=== PATIENT | female | born 1940 | race Asian ===

== ENCOUNTER 2016-04-20 21:45 | Inpatient (IN) | payer MEDICARE, MEDICAID ==
[~2016-04-20] VITALS: Ht 157.5 cm; Wt 49.9 kg
[~2016-04-20 21:45] MED LIST: AMLODIPINE BESYL5 MG ORAL; ASPIR 8181 MG ORAL; ATORVASTATIN CA20 MG ORAL; GABAPENTIN800 MG ORAL; LOSARTAN POTASS50 MG ORAL; METFORMIN HCL1000 M1 ORAL; NOVOLOG100 UNIT/3 SUBQ
[2016-04-20] MEDS ORDERED: Piperacillin/Tazobactam 3.375 GM in NS 110 ML IVPB ONE (22:30)
[2016-04-20] MEDS ORDERED: Vancomycin 1 GM in NS 275 ML IV ONE (22:30)
[2016-04-20 23:25] LABS: EOSINOPHILS % (AUTO) 2.5 % (0.0-3.0); KETONES,URINE NEGATIVE (NEGATIVE); LEUKOCYTE ESTERASE ,URINE 2+ (NEGATIVE); LYMPHOCYTES % (AUTO) 40.3 % (20.0-45.0); MEAN CORPUSCULAR HEMOGLOBIN 31.2 PG (27.0-31.0); MEAN CORPUSCULAR HGB CONC 33.7 G/DL (32.0-36.0); MEAN CORPUSCULAR VOLUME 93 FL (80-99); MEAN PLATELET VOLUME 5.3 FL (6.5-10.1); MONOCYTES % (AUTO) 7.5 % (1.0-10.0); NEUTROPHILS % (AUTO) 48.6 % (45.0-75.0); NITRITE,URINE NEGATIVE (NEGATIVE); PH,URINE 6 (4.5-8.0); PLATELET COUNT 342 K/UL (150-450); PROTEIN,URINE NEGATIVE (NEGATIVE); RED BLOOD COUNT 3.72 M/UL (4.20-5.40); RED CELL DISTRIBUTION WIDTH 11.5 % (11.6-14.8); UROBILINOGEN,URINE NORMAL MG/DL (0.0-1.0); WHITE BLOOD COUNT 6.7 K/UL (4.8-10.8)
[2016-04-20 23:38] LABS: ALANINE AMINOTRANSFERASE 28 U/L (3-33); ANION GAP 14 (5-15); ASPARTATE AMINO TRANSFERASE 20 U/L (5-40); CALCIUM 9.3 mg/dL (8.6-10.2); CARBON DIOXIDE 26 mEQ/L (20-30); CHLORIDE 99 mEQ/L (98-107); CREATININE 0.9 mg/dL (0.5-0.9); HEMOLYSIS 7; POTASSIUM 4.3 mEQ/L (3.4-4.9); SODIUM 139 mEQ/L (135-145); TOTAL PROTEIN 7.5 g/dL (6.6-8.7)
[2016-04-20 23:41] LABS: TROPONIN I < 0.30 ng/mL (<=0.30)
[2016-04-20 23:52] LABS: APPEARANCE,URINE SLIGHTLY CLOUDY
[2016-04-20] MEDS ORDERED: Zosyn 3.375gm inj ONE (23:58)
[2016-04-20] MEDS ORDERED: Tubing IV Cassette IV ONE (23:58)
[2016-04-20] MEDS ORDERED: NS 110 ML ONE (23:58)
[2016-04-20 23:59] LABS: RBC,URINE 60-80 /HPF (0 - 2); WBC,URINE 40-60 /HPF (0 - 2)
[2016-04-21] VITALS (7 sets, daily range): BP systolic 126–177; BP diastolic 61–103
[2016-04-21] LABS: BACTERIA,URINE MANY /HPF; SQUAMOUS EPITHELIAL CELL,UR FEW /LPF (NONE/OCC)
[2016-04-21] MEDS ORDERED: Mylanta II UD 30ml ORAL PRN (00:30)
[2016-04-21] MEDS ORDERED: LORazepam Inj 2mg/ml 1ml IV PRN (00:30)
[2016-04-21] MEDS ORDERED: Miralax 17gm pkt ORAL PRN (00:30)
[2016-04-21] MEDS ORDERED: Zolpidem 5mg tab ORAL PRN (00:30)
[2016-04-21] MEDS ORDERED: NS 275 ML ONE (01:01)
[2016-04-21] MEDS ORDERED: Vancomycin 1gm inj IVPB ONE (01:01)
[2016-04-21] MEDS: Morphine Sulfate 2mg/ml Inj IVP PRN ×3 (03:46→16:31)
[2016-04-21] MEDS ORDERED: Cefepime 1gm vial ONE (04:59)
[2016-04-21] MEDS: Cefepime HCl 1 GM in D5W 55 ML IV SCH ×3 (05:42→22:59)
--- NOTE | 2016-04-21 06:10 | Emergency Room Report ---
History of Present Illness General Chief Complaint: Skin Rash/Abscess Source: Patient, Family Member Present Illness HPI Patient is a 75-year-old female who presented after increased right buttock pain and swelling. Patient prior history of diabetes. Patient had been having gradually progressively enlarging buttock ulcer which had began after a fall in the bathtub. Patients caregiver stated that she had been having increased pain to the area. Said been progressively getting worse. Allergies: Coded Allergies: No Known Allergies (Unverified , 01/23/16) Patient History Past Medical History: see triage record, DM Reviewed Nursing Documentation: PMH: Agreed, PSxH: Agreed Nursing Documentation-PMH Hx Cardiac Problems: Yes Hx Hypertension: Yes Hx Diabetes: Yes Hx Cancer: No Hx Gastrointestinal Problems: No Hx Neurological Problems: Yes Hx Peripheral Neuropathy: Yes - diabetic neuropathy on feet Review of Systems All Other Systems: negative except mentioned in HPI Physical Exam Vital Signs Date Time Temp Pulse Resp B/P Pulse Ox O2 Delivery O2 Flow Rate FiO2 04/20/16 21:51 98.2 108 14 160/103 98 Room Air Sp02 EP Interpretation: reviewed, normal General Appearance: alert, GCS 15, non-toxic, moderate distress Head: atraumatic ENT: normal ENT inspection, hearing grossly normal, normal voice Neck: normal inspection, full range of motion, supple, no bony tend Respiratory: normal inspection, lungs clear, normal breath sounds, no respiratory distress, no retraction, no wheezing Cardiovascular #1: regular rate, rhythm, no edema Gastrointestinal: normal inspection, normal bowel sounds, non tender, soft, no guarding, no hernia Genitourinary: no CVA tenderness Musculoskeletal: normal inspection, back normal, normal range of motion Neurologic: normal inspection, alert, responsive, speech normal Psychiatric: normal inspection, judgement/insight normal, mood/affect normal Skin: other - right buttock ulcer about buttock Medical Decision Making Diagnostic Impression: Primary Impression: Diabetes mellitus Additional Impressions: Diabetic ulcer of buttock Cellulitis Urinary tract infection ER Course Patient is a 75-year-old female who presented after increased skin rash. Differential diagnosis included was not limited to abscess, necrotizing fasciitis, Fourniere's gangrene, among others.Because of complexity of patient' s case laboratory testing and imaging studies were ordered. The patient was noted to have exam consistent with a the infected skin ulcer which appears to be adjacent to the rectum. Laboratory testing showed normal white blood count. CT of the abdomen pelvis read by radiology showed evidence of cellulitis to the right buttock without definite abscess.The patient started IV antibiotics. A urinalysis showed evidence of infection. Dr. harrington was contacted for inpatient management. Labs Test 04/20/16 23:00 04/21/16 06:30 White Blood Count 6.7 K/UL (4.8-10.8) Red Blood Count 3.72 M/UL (4.20-5.40) Hemoglobin 11.6 G/DL (12.0-16.0) Hematocrit 34.5 % (37.0-47.0) Mean Corpuscular Volume 93 FL (80-99) Mean Corpuscular Hemoglobin 31.2 PG (27.0-31.0) Mean Corpuscular Hemoglobin Concent 33.7 G/DL (32.0-36.0) Red Cell Distribution Width 11.5 % (11.6-14.8) Platelet Count 342 K/UL (150-450) Mean Platelet Volume 5.3 FL (6.5-10.1) Neutrophils (%) (Auto) 48.6 % (45.0-75.0) Lymphocytes (%) (Auto) 40.3 % (20.0-45.0) Monocytes (%) (Auto) 7.5 % (1.0-10.0) Eosinophils (%) (Auto) 2.5 % (0.0-3.0) Basophils (%) (Auto) 1.0 % (0.0-2.0) Urine Color Pale yellow Urine Appearance Slightly cloudy Urine pH 6 (4.5-8.0) Urine Specific [place] 1.010 (1.005-1.035) Urine Protein Negative (NEGATIVE) Urine Glucose (UA) 4+ (NEGATIVE) Urine Ketones Negative (NEGATIVE) Urine Occult Blood 3+ (NEGATIVE) Urine Nitrite Negative (NEGATIVE) Urine Bilirubin Negative (NEGATIVE) Urine Urobilinogen Normal MG/DL (0.0-1.0) Urine Leukocyte Esterase 2+ (NEGATIVE) Urine RBC 60-80 /HPF (0 - 2) Urine WBC 40-60 /HPF (0 - 2) Urine Squamous Epithelial Cells Few /LPF (NONE/OCC) Urine Bacteria Many /HPF (NONE) Sodium Level 139 mEQ/L (135-145) Potassium Level 4.3 mEQ/L (3.4-4.9) Chloride Level 99 mEQ/L (98-107) Carbon Dioxide Level 26 mEQ/L (20-30) Anion Gap 14 (5-15) Blood Urea Nitrogen 12 mg/dL (7-23) Creatinine 0.9 mg/dL (0.5-0.9) Estimat Glomerular Filtration Rate mL/min (>60) Glucose Level 232 mg/dL (74-106) Calcium Level 9.3 mg/dL (8.6-10.2) Total Bilirubin < 0.2 mg/dL (0.0-1.2) Aspartate Amino Transf (AST/SGOT) 20 U/L (5-40) Alanine Aminotransferase (ALT/SGPT) 28 U/L (3-33) Alkaline Phosphatase 114 U/L (35-104) Total Creatine Kinase 45 U/L (26-140) Troponin I < 0.30 ng/mL (<=0.30) Total Protein 7.5 g/dL (6.6-8.7) Albumin 3.8 g/dL (3.5-5.2) Globulin 3.7 g/dL Albumin/Globulin Ratio 1.0 (1.0-2.7) Chest X-Ray Diagnostic Results EP Interpretation: Yes Findings: no consolidation, no effusion, no pneumothorax, no acute cardiopulmonary disease Number of Views: 1 Last Vital Signs Date Time Temp Pulse Resp B/P Pulse Ox O2 Delivery O2 Flow Rate FiO2 04/21/16 04:45 97.7 04/21/16 04:00 92 18 163/90 95 Room Air Status: unchanged Disposition: ADMITTED INPATIENT Condition: Serious Referrals: [facility],REFERRING (PCP) Dylan Fletcher Apr 21, 2016 06:10
[2016-04-21] MEDS: Losartan 50mg tab ORAL SCH (08:33)
[2016-04-21] MEDS: Heparin 5000 units/ml inj SUBQ SCH ×3 (08:35→21:09)
[2016-04-21 08:38] LABS: REFLEX LACTIC ACID YES OR NO YES
--- NOTE | 2016-04-21 09:42 | Diagnostic Imaging Report ---
Clinical Indication: PAIN, status post fall Technique: No oral contrast utilized, per emergency room physician request IV administration nonionic contrast. Venous phase spiral acquisition obtained through the abdomen and pelvis. Multiplanar reconstructions were generated. Total dose length product 708 mGycm. CTDIvol(s) 13 mGy Comparison: None Findings: The appendix is normal. There is no evidence of diverticulosis or diverticulitis. No small bowel distention. No free or loculated intraperitoneal air or fluid The liver, gallbladder, bile ducts, pancreas, spleen, adrenals are unremarkable. The kidneys demonstrate subcentimeter low-attenuation lesions bilaterally, too small to characterize, most likely benign simple cortical cysts. No hydronephrosis, hydroureter, renal or ureteral calculi demonstrated. No retroperitoneal or mesenteric mass or adenopathy. No pelvic mass or adenopathy. The uterus is not evident, presumed surgically absent. There is an old healed fracture deformity of the right pubic bones. There are degenerative changes of the lumbar spine. There is an old healed right seventh rib fracture deformity. There is slight skin thickening and infiltration of the subcutaneous at to the right of the inferior gluteal fold. The included lung bases are clear. Impression: No acute abnormality Possible soft tissue changes to the right of the inferior gluteal fold, could indicate cellulitis. Correlate with clinical findings Incidental findings as noted, including right pubic bone old fracture deformity, old healed right seventh rib fracture deformity, surgically absent uterus Bilateral subcentimeter low-attenuation renal lesions, too small to characterize, most likely benign simple cortical cysts. No further followup necessary This agrees with the preliminary interpretation provided overnight by [facility] teleradiology service. The CT scanner at [facility] is accredited by the [employer] and the scans are performed using protocols designed to limit radiation exposure to as low as reasonably achievable to attain images of sufficient resolution adequate for diagnostic evaluation.
--- NOTE | 2016-04-21 09:44 | Consultation ---
Consult Note Consult Note ID Dic # [id number] NOLA GAYTAN M.D. Apr 21, 2016 09:44
--- NOTE | 2016-04-21 11:06 | Diagnostic Imaging Report ---
Indication: SOB Technique: One view of the chest Comparison: : 06/09/15 Findings: Lungs and pleural spaces are clear. Heart size is normal. The aorta is elongated and calcified Impression: No acute process This agrees with the preliminary interpretation provided by the emergency room physician
--- NOTE | 2016-04-21 14:16 | Wound Care Consultation ---
Wound Assessment Wound Assessment : Wound Number: #1 Wound Present on Admission: Yes New Wound: No Status Change of Wound: No Wound Location Body Site Modif: right Wound Location Body Site: buttocks Wound Type: traumatic injury Simeon Test: Does not Simeon Wound Thickness: Full Thickness Wound Length: 5.0 Wound Width: 3.0 Wound Depth: 1.0 Percent of Wound Chical/Red: 90 Percent of Wound Bed Yellow/Wh: 5 Percent of Wound Black/Brown: 5 Wound Drainage Description: Serosanguineous Wound Drainage Amount: Moderate Wound Drainage Odor: None/Absent Tissue Surrounding Wound: Macerated Wound General Appearance: Reddened, Bleeding, Draining, Necrotic - noted 5% yellow slough,5% Wound Comment #1 Right buttock Traumatic injury Recommendation. -FOLLOW UP WITH ATTENDING MD FOR POSSIBLE SURGICAL INTERVENTION. -Local wound care as ordered. -Offload affected area. -Turn and reposition. -Keep clean and dry. -Apply low air loss overlay. -Optimize nutrition. -Offload both heels. -Assess and notify Md if any further changes of condition are noted to wound site. S/P fall .According to patient she hit the toilet paper helm that created a wound.Site was cleansed and applied treatment as ordered. tolerated well , patient repositioned, right buttock wound offloaded. no foul odor noted at this time. tolerated treatment well. SONIA MOONEY Apr 21, 2016 14:16
--- NOTE | 2016-04-21 15:17 | Consultation ---
DATE OF CONSULTATION: INFECTIOUS DISEASE CONSULTATION CONSULTING PHYSICIAN: Barrie Jack M.D. REFERRING PHYSICIAN: Velma Bertrand M.D. REASON FOR CONSULTATION: Evaluation of the patient for right buttock ulcer, need for antibiotic management. HISTORY OF PRESENT ILLNESS: This is a 75-year-old female with multiple medical problems listed below who had laceration of the right buttock area after she was trying to sit on the bathroom and she bumped her buttock to a toilet paper helm two weeks ago since then the patient developed increased pain in the area and came to the hospital for further care. PAST MEDICAL HISTORY: 1. History of cataract. 2. History of diabetes. 3. History of diabetic neuropathy. 4. Hyperlipidemia. 5. Hypertension. 6. History of right ankle fracture status post surgery in 2016. MEDICATIONS: Cefepime and vancomycin. ALLERGIES: No known drug allergies. SOCIAL HISTORY: The patient lives with the family. REVIEW OF SYSTEMS: HEENT: No recent change in vision or hearing. Pulmonary: No cough or shortness. Cardiovascular: No chest pain or palpitations. Gastrointestinal/Abdomen: No nausea or vomiting. Genitourinary: No dysuria. Musculoskeletal: As mentioned above. PHYSICAL EXAMINATION: VITAL SIGNS: Temperature 98 degrees, blood pressure 156/80, pulse 94, respiratory rate 18. HEENT: Mild pale conjunctivae. No icterus. NECK: No lymphadenopathy. CHEST: Coarse breathing sounds. HEART: S1 and S2. ABDOMEN: Soft and nontender. EXTREMITIES: The patient has laceration of the buttock area with surrounding erythema. No purulent discharge. LABORATORY AND DIAGNOSTIC DATA: White blood cell 6.7, hemoglobin 11.6, platelet 342,000. UA is 40 to 60 white blood cells. BUN 12, creatinine 0.9. Lactic acid is 2.5 ASSESSMENT: The patient is a 75-year-old female, who came to the hospital. The patient has laceration of the buttock area with surrounding erythema with cellulitis, no purulent discharge. The patient has also some mild lactic acidosis. The patient would benefit from short course of antibiotics for gram positive and gram negative coverage and also would benefit from surgical evaluation for possible closure of the wound. PLAN: 1. We will continue the patient on IV vancomycin and cefepime. 2. Monitor CBC. 3. monitor BMP. 4. Wound culture. 5. Recommend surgery recommendation. Based on the patient's clinical course and laboratories, we will do further recommendations. Thank you, Dr. Bertrand, for allowing me to participate in the care of this patient. I will follow the patient with you during this hospitalization. Barrie Jack M.D. DR: Amarjit JOB#: [id number] CC:
--- NOTE | 2016-04-21 18:06 | History and Physical ---
History of Present Illness General Date patient seen: Apr 21, 2016 Reason for Hospitalization: Skin Rash/Abscess Present Illness HPI 75-year-old female with hx of diabetes, htn, who presented after increased right buttock pain and swelling. Patient had been having gradually progressively enlarging buttock ulcer which had began after a fall in the bathtub. Patients caregiver stated that she had been having increased pain to the area. She was diagnosed to have cellulitis and admitted to receive IV antibiotics and oral wound care. Allergies: Coded Allergies: No Known Allergies (Unverified , 01/23/16) Medication History Scheduled Amlodipine Besylate* (Amlodipine Besylate*), 5 MG ORAL DAILY, (Reported) Aspirin* (Aspir 81*), 81 MG ORAL DAILY, (Reported) Atorvastatin Calcium* (Atorvastatin Calcium*), 20 MG ORAL BEDTIME, (Reported) Gabapentin* (Gabapentin*), 800 MG ORAL THREE TIMES A DAY, (Reported) Losartan Potassium* (Losartan Potassium*), 100 MG ORAL DAILY, (Reported) Metformin Hcl* (Metformin Hcl*), 1,000 MG ORAL TWICE A DAY, (Reported) Miscellaneous Medications Insulin Aspart* (Novolog*), 0 SUBQ, (Reported) Patient History Healthcare decision maker Resuscitation status Advanced Directive on File Past Medical/Surgical History Past Medical/Surgical History: (1) Diabetes mellitus (2) HTN (hypertension) Review of Systems All Other Systems: negative except mentioned in HPI Physical Exam General Appearance: WD/WN, no apparent distress Lines, tubes and drains: peripheral, central line HEENT: normocephalic, atraumatic Neck: non-tender, normal alignment Respiratory/Chest: chest wall non-tender, lungs clear Cardiovascular/Chest: normal peripheral pulses, normal rate Abdomen: normal bowel sounds, non tender Genitourinary/Rectal: normal genital exam Last 24 Hour Vital Signs Date Time Temp Pulse Resp B/P Pulse Ox O2 Delivery O2 Flow Rate FiO2 04/21/16 16:14 99.3 89 20 145/72 93 Room Air 04/21/16 12:00 98.2 91 20 142/70 94 Room Air 04/21/16 08:33 156/80 04/21/16 08:33 94 156/80 04/21/16 08:03 98.0 94 20 156/80 96 Room Air 04/21/16 04:45 97.7 04/21/16 04:00 97.7 92 18 163/90 95 Room Air 04/21/16 03:40 98.2 89 16 177/80 97 Room Air 04/21/16 03:20 89 16 177/80 97 Room Air 04/21/16 02:00 98.2 87 14 160/103 98 Room Air 04/20/16 21:51 98.2 108 14 160/103 98 Room Air Intake and Output 04/20/16 04/21/16 19:00 07:00 Intake Total 440 ml Balance 440 ml IV Total 440 ml # Voids 3 Laboratory Tests Test 04/20/16 23:00 04/21/16 08:00 04/21/16 12:15 White Blood Count 6.7 K/UL (4.8-10.8) Red Blood Count 3.72 M/UL (4.20-5.40) L Hemoglobin 11.6 G/DL (12.0-16.0) L Hematocrit 34.5 % (37.0-47.0) L Mean Corpuscular Volume 93 FL (80-99) Mean Corpuscular Hemoglobin 31.2 PG (27.0-31.0) H Mean Corpuscular Hemoglobin Concent 33.7 G/DL (32.0-36.0) Red Cell Distribution Width 11.5 % (11.6-14.8) L Platelet Count 342 K/UL (150-450) Mean Platelet Volume 5.3 FL (6.5-10.1) L Neutrophils (%) (Auto) 48.6 % (45.0-75.0) Lymphocytes (%) (Auto) 40.3 % (20.0-45.0) Monocytes (%) (Auto) 7.5 % (1.0-10.0) Eosinophils (%) (Auto) 2.5 % (0.0-3.0) Basophils (%) (Auto) 1.0 % (0.0-2.0) Urine Color Pale yellow Urine Appearance Slightly cloudy Urine pH 6 (4.5-8.0) Urine Specific [place] 1.010 (1.005-1.035) Urine Protein Negative (NEGATIVE) Urine Glucose (UA) 4+ (NEGATIVE) H Urine Ketones Negative (NEGATIVE) Urine Occult Blood 3+ (NEGATIVE) H Urine Nitrite Negative (NEGATIVE) Urine Bilirubin Negative (NEGATIVE) Urine Urobilinogen Normal MG/DL (0.0-1.0) Urine Leukocyte Esterase 2+ (NEGATIVE) H Urine RBC 60-80 /HPF (0 - 2) H Urine WBC 40-60 /HPF (0 - 2) H Urine Squamous Epithelial Cells Few /LPF (NONE/OCC) Urine Bacteria Many /HPF (NONE) H Sodium Level 139 mEQ/L (135-145) Potassium Level 4.3 mEQ/L (3.4-4.9) Chloride Level 99 mEQ/L (98-107) Carbon Dioxide Level 26 mEQ/L (20-30) Anion Gap 14 (5-15) Blood Urea Nitrogen 12 mg/dL (7-23) Creatinine 0.9 mg/dL (0.5-0.9) Estimat Glomerular Filtration Rate mL/min (>60) Glucose Level 232 mg/dL (74-106) H Calcium Level 9.3 mg/dL (8.6-10.2) Total Bilirubin < 0.2 mg/dL (0.0-1.2) Aspartate Amino Transf (AST/SGOT) 20 U/L (5-40) Alanine Aminotransferase (ALT/SGPT) 28 U/L (3-33) Alkaline Phosphatase 114 U/L (35-104) H Total Creatine Kinase 45 U/L (26-140) Creatine Kinase MB Pending Troponin I < 0.30 ng/mL (<=0.30) Total Protein 7.5 g/dL (6.6-8.7) Albumin 3.8 g/dL (3.5-5.2) Globulin 3.7 g/dL Albumin/Globulin Ratio 1.0 (1.0-2.7) Lactic Acid Level 2.50 mmol/L (0.66-2.22) H 2.70 mmol/L (0.66-2.22) H Height (Feet): 5 Height (Inches): 2.00 Weight (Pounds): 110 Medications Current Medications Medications (Trade) Dose Ordered Sig/Avni Route PRN Reason Start Time Stop Time Status Last Admin Dose Admin Acetaminophen (Tylenol) 650 mg Q4H PRN ORAL fever 04/21/16 00:30 05/21/16 00:29 Al Hydroxide/Mg Hydroxide (Mylanta II) 30 ml Q6H PRN ORAL dyspepsia 04/21/16 00:30 05/21/16 00:29 Amlodipine Besylate (Norvasc) 5 mg DAILY ORAL 04/21/16 09:00 05/21/16 08:59 04/21/16 08:33 Aspirin (Ecotrin) 81 mg DAILY ORAL 04/22/16 09:00 05/22/16 08:59 Atorvastatin Calcium (Lipitor) 20 mg BEDTIME ORAL 04/21/16 21:00 05/21/16 20:59 Cefepime HCl/ Dextrose (Maxipime/D5W) 55 ml @ 110 mls/hr EVERY 8 HOURS IV 04/21/16 06:00 04/28/16 05:59 04/21/16 12:56 Dextrose STAT PRN IV Hypoglycemia 04/21/16 17:30 05/21/16 17:29 Gabapentin (Neurontin) 800 mg THREE TIMES A DAY ORAL 04/21/16 18:00 05/21/16 17:59 Heparin Sodium (Porcine) (Heparin 5000 units/ml) 5,000 units EVERY 12 HOURS SUBQ 04/21/16 09:00 05/21/16 08:59 Insulin Aspart (NovoLOG) BEFORE MEALS AND HS SUBQ 04/21/16 21:00 05/21/16 20:59 Lorazepam (Ativan 2mg/ml 1ml) 0.5 mg Q4H PRN IV For Anxiety 04/21/16 00:30 04/28/16 00:29 Losartan Potassium (Cozaar) 100 mg DAILY ORAL 04/21/16 09:00 05/21/16 08:59 04/21/16 08:33 Metformin HCl (Glucophage) 1,000 mg BIAC ORAL 04/22/16 06:30 05/22/16 06:29 Morphine Sulfate (Morphine Sulfate) 1 mg EVERY 4 HOURS PRN IVP For Pain 04/21/16 00:30 04/28/16 00:29 04/21/16 08:35 Ondansetron HCl (Zofran) 4 mg Q6H PRN IVP Nausea & Vomiting 04/21/16 00:30 05/21/16 00:29 04/21/16 03:52 Polyethylene Glycol (Miralax) 17 gm HSPRN PRN ORAL Constipation 04/21/16 00:30 05/21/16 00:29 Vancomycin HCl 1 ea 1 ea DAILY PRN MISC Per rx protocol 04/21/16 00:30 05/21/16 00:29 Vancomycin HCl/ Dextrose (Vancomycin/D5W) 275 ml @ 183.708 mls/hr Q24H IVPB 04/21/16 21:00 04/26/16 20:59 Zolpidem Tartrate (Ambien) 5 mg HSPRN PRN ORAL Insomnia 04/21/16 00:30 05/21/16 00:29 Assessment/Plan Problem List: (1) Cellulitis ICD Codes: L03.90 - Cellulitis, unspecified SNOMED: 204528204 (2) Diabetic ulcer of buttock ICD Codes: E11.622 - Type 2 diabetes mellitus with other skin ulcer; L98.419 - Non-pressure chronic ulcer of buttock with unspecified severity SNOMED: 210150329, 05052886, 409071153 (3) Diabetes mellitus ICD Codes: E11.9 - Type 2 diabetes mellitus without complications SNOMED: 82127396 (4) HTN (hypertension) ICD Codes: I10 - Essential (primary) hypertension SNOMED: 57082673 (5) Hypertension ICD Codes: I10 - Essential (primary) hypertension SNOMED: 57554126 Assessment/Plan wound care IV antibioitcs check cultures sliding scale diabetic diet monitor BP CHIDI STEPHEN Apr 21, 2016 18:06
[2016-04-21] MEDS: Vancomycin 750mg/D5W 275ml IVPB SCH ×2 (21:07)
[2016-04-21] MEDS: Atorvastatin 20mg tab ORAL SCH (21:08)
[2016-04-21] MEDS: NovoLOG Insulin Flexpen SUBQ SCH (21:11)
[2016-04-22] VITALS (7 sets, daily range): BP systolic 111–133; BP diastolic 52–70
[2016-04-22] MEDS: Cefepime HCl 1 GM in D5W 55 ML IV SCH (05:38)
[2016-04-22] MEDS: NovoLOG Insulin Flexpen SUBQ SCH ×4 (06:18→20:28)
[2016-04-22] MEDS: metFORMIN 500mg tab ORAL SCH ×2 (06:21→17:02)
[2016-04-22] MEDS ORDERED: NovoLOG Insulin Flexpen SUBQ SCH (06:30)
[2016-04-22 07:00] LABS: EOSINOPHILS % (AUTO) 3.4 % (0.0-3.0); LYMPHOCYTES % (AUTO) 43.1 % (20.0-45.0); MEAN CORPUSCULAR HEMOGLOBIN 31.6 PG (27.0-31.0); MEAN CORPUSCULAR HGB CONC 34.6 G/DL (32.0-36.0); MEAN CORPUSCULAR VOLUME 91 FL (80-99); MEAN PLATELET VOLUME 5.7 FL (6.5-10.1); MONOCYTES % (AUTO) 8.6 % (1.0-10.0); NEUTROPHILS % (AUTO) 43.9 % (45.0-75.0); PLATELET COUNT 299 K/UL (150-450); RED BLOOD COUNT 3.44 M/UL (4.20-5.40); RED CELL DISTRIBUTION WIDTH 11.9 % (11.6-14.8); WHITE BLOOD COUNT 5.6 K/UL (4.8-10.8)
[2016-04-22 07:15] LABS: ALANINE AMINOTRANSFERASE 16 U/L (3-33); ALBUMIN/GLOBULIN RATIO 1.2 (1.0-2.7); ANION GAP 11 (5-15); ASPARTATE AMINO TRANSFERASE 16 U/L (5-40); CALCIUM 9.2 mg/dL (8.6-10.2); CARBON DIOXIDE 29 mEQ/L (20-30); CHLORIDE 98 mEQ/L (98-107); CREATININE 0.7 mg/dL (0.5-0.9); HEMOLYSIS 2; POTASSIUM 3.8 mEQ/L (3.4-4.9); SODIUM 138 mEQ/L (135-145); TOTAL PROTEIN 6.6 g/dL (6.6-8.7)
[2016-04-22] MEDS: Losartan 50mg tab ORAL SCH (08:43)
[2016-04-22] MEDS: Aspirin EC 81mg tab ORAL SCH (08:46)
[2016-04-22] MEDS: Heparin 5000 units/ml inj SUBQ SCH ×2 (08:47→20:29)
--- NOTE | 2016-04-22 09:35 | Infectious Diseases Prog Note ---
Assessment/Plan Assessment/Plan A: This is a 75-year-old female with Right buttock ulcer Wnd infection Ucx'; GNR ( Colonizer ) History of cataract. DM Diabetic neuropathy. HLD HTN Right ankle fracture status post surgery in 2016 PLAN: Cont pt on IV vancomycin and cefepime d# 2 / 5 , upon DC will change to PO Augmentin Monitor CBC monitor BMP. Wound culture. Recommend surgery eval Subjective Allergies: Coded Allergies: No Known Allergies (Unverified , 01/23/16) Objective Vital Signs Last 24 Hour Vital Signs Date Time Temp Pulse Resp B/P Pulse Ox O2 Delivery O2 Flow Rate FiO2 04/22/16 08:46 89 123/65 04/22/16 08:43 123/65 04/22/16 08:00 97.2 89 18 123/65 96 Room Air 04/22/16 04:37 98.2 04/22/16 04:00 97.7 66 16 111/52 94 Room Air 04/22/16 02:45 98.2 79 16 118/61 92 Room Air 04/22/16 00:00 98.2 79 16 118/61 92 Room Air 04/21/16 20:00 98.6 92 22 126/64 93 Room Air 04/21/16 16:14 99.3 89 20 145/72 93 Room Air 04/21/16 12:00 98.2 91 20 142/70 94 Room Air Height (Feet): 5 Height (Inches): 2.00 Weight (Pounds): 110 Microbiology Date/Time Source Procedure Growth Status 04/20/16 23:00 Urine,Clean Catch Urine Culture - Preliminary Gram Negative Bacillus 1 Resulted Laboratory Tests Test 04/21/16 12:15 04/22/16 04:35 Lactic Acid Level 2.70 mmol/L (0.66-2.22) H White Blood Count 5.6 K/UL (4.8-10.8) Red Blood Count 3.44 M/UL (4.20-5.40) L Hemoglobin 10.8 G/DL (12.0-16.0) L Hematocrit 31.4 % (37.0-47.0) L Mean Corpuscular Volume 91 FL (80-99) Mean Corpuscular Hemoglobin 31.6 PG (27.0-31.0) H Mean Corpuscular Hemoglobin Concent 34.6 G/DL (32.0-36.0) Red Cell Distribution Width 11.9 % (11.6-14.8) Platelet Count 299 K/UL (150-450) Mean Platelet Volume 5.7 FL (6.5-10.1) L Neutrophils (%) (Auto) 43.9 % (45.0-75.0) L Lymphocytes (%) (Auto) 43.1 % (20.0-45.0) Monocytes (%) (Auto) 8.6 % (1.0-10.0) Eosinophils (%) (Auto) 3.4 % (0.0-3.0) H Basophils (%) (Auto) 1.0 % (0.0-2.0) Sodium Level 138 mEQ/L (135-145) Potassium Level 3.8 mEQ/L (3.4-4.9) Chloride Level 98 mEQ/L (98-107) Carbon Dioxide Level 29 mEQ/L (20-30) Anion Gap 11 (5-15) Blood Urea Nitrogen 16 mg/dL (7-23) Creatinine 0.7 mg/dL (0.5-0.9) Estimat Glomerular Filtration Rate mL/min (>60) Glucose Level 274 mg/dL (74-106) H Hemoglobin A1c Pending Calcium Level 9.2 mg/dL (8.6-10.2) Total Bilirubin 0.2 mg/dL (0.0-1.2) Aspartate Amino Transf (AST/SGOT) 16 U/L (5-40) Alanine Aminotransferase (ALT/SGPT) 16 U/L (3-33) Alkaline Phosphatase 101 U/L (35-104) Total Protein 6.6 g/dL (6.6-8.7) Albumin 3.6 g/dL (3.5-5.2) Globulin 3.0 g/dL Albumin/Globulin Ratio 1.2 (1.0-2.7) Triglycerides Level Pending Cholesterol Level Pending LDL Cholesterol Pending HDL Cholesterol Pending Cholesterol/HDL Ratio Pending Thyroid Stimulating Hormone (TSH) Pending Current Medications Medications (Trade) Dose Ordered Sig/Avni Route PRN Reason Start Time Stop Time Status Last Admin Dose Admin Acetaminophen (Tylenol) 650 mg Q4H PRN ORAL fever 04/21/16 00:30 05/21/16 00:29 04/22/16 03:38 Al Hydroxide/Mg Hydroxide (Mylanta II) 30 ml Q6H PRN ORAL dyspepsia 04/21/16 00:30 05/21/16 00:29 Amlodipine Besylate (Norvasc) 5 mg DAILY ORAL 04/21/16 09:00 05/21/16 08:59 04/22/16 08:46 Aspirin (Ecotrin) 81 mg DAILY ORAL 04/22/16 09:00 05/22/16 08:59 04/22/16 08:46 Atorvastatin Calcium (Lipitor) 20 mg BEDTIME ORAL 04/21/16 21:00 05/21/16 20:59 04/21/16 21:08 Cefepime HCl/ Dextrose (Maxipime/D5W) 55 ml @ 110 mls/hr EVERY 8 HOURS IV 04/21/16 06:00 04/28/16 05:59 04/22/16 05:38 Dextrose STAT PRN IV Hypoglycemia 04/21/16 17:30 05/21/16 17:29 Gabapentin (Neurontin) 800 mg THREE TIMES A DAY ORAL 04/21/16 18:00 05/21/16 17:59 04/22/16 08:45 Heparin Sodium (Porcine) (Heparin 5000 units/ml) 5,000 units EVERY 12 HOURS SUBQ 04/21/16 09:00 05/21/16 08:59 Insulin Aspart (NovoLOG) BEFORE MEALS AND HS SUBQ 04/21/16 21:00 05/21/16 20:59 04/22/16 06:18 Lorazepam (Ativan 2mg/ml 1ml) 0.5 mg Q4H PRN IV For Anxiety 04/21/16 00:30 04/28/16 00:29 Losartan Potassium (Cozaar) 100 mg DAILY ORAL 04/21/16 09:00 05/21/16 08:59 04/22/16 08:43 Metformin HCl (Glucophage) 1,000 mg BIAC ORAL 04/22/16 06:30 05/22/16 06:29 04/22/16 06:21 Morphine Sulfate (Morphine Sulfate) 1 mg EVERY 4 HOURS PRN IVP For Pain 04/21/16 00:30 04/28/16 00:29 04/21/16 16:31 Ondansetron HCl (Zofran) 4 mg Q6H PRN IVP Nausea & Vomiting 04/21/16 00:30 05/21/16 00:29 04/21/16 03:52 Polyethylene Glycol (Miralax) 17 gm HSPRN PRN ORAL Constipation 04/21/16 00:30 05/21/16 00:29 Vancomycin HCl 1 ea 1 ea DAILY PRN MISC Per rx protocol 04/21/16 00:30 05/21/16 00:29 Vancomycin HCl/ Dextrose (Vancomycin/D5W) 275 ml @ 183.708 mls/hr Q24H IVPB 04/21/16 21:00 04/26/16 20:59 04/21/16 21:07 Zolpidem Tartrate (Ambien) 5 mg HSPRN PRN ORAL Insomnia 04/21/16 00:30 05/21/16 00:29 NOLA GAYTAN M.D. Apr 22, 2016 09:35
[2016-04-22 12:56] LABS: HEMOGLOBIN A1C 9.4 % (< 6.0)
[2016-04-22 13:47] LABS: CHOLESTEROL 126 mg/dL (< 200); CHOLESTEROL/HDL RATIO 3.7 (3.3-4.4); LDL CHOLESTEROL (CALC.) 46 mg/dL (60-99)
[2016-04-22 14:34] LABS: CKMB < 1.5 ng/mL (< 3.8)
--- NOTE | 2016-04-22 15:26 | Diagnostic Imaging Report ---
Indication: DYSPNEA Technique: One view of the chest Comparison: none Findings: Lungs and pleural spaces are clear. Heart size is normal. Aorta is elongated and calcified. No significant change Impression: No acute process
[2016-04-22] MEDS: Atorvastatin 20mg tab ORAL SCH (20:26)
[2016-04-22] MEDS: Vancomycin 750mg/D5W 275ml IVPB SCH ×2 (20:26)
--- NOTE | 2016-04-22 22:02 | Pulmonology Progress Note ---
Assessment/Plan Problems: (1) Cellulitis (2) Diabetic ulcer of buttock (3) Diabetes mellitus (4) HTN (hypertension) (5) Hypertension Assessment/Plan Plan Broad Spec Antbx Wound Care Nutritional Status Daily Labs tight BP and BG control Subjective ROS Limited/Unobtainable: Yes Constitutional: Reports: anorexia, chills, fatigue, fever Skin: Reports: rash, ulcer Musculoskeletal: Reports: pain, stiffness, swelling Allergies: Coded Allergies: No Known Allergies (Unverified , 01/23/16) Objective Last 24 Hour Vital Signs Date Time Temp Pulse Resp B/P Pulse Ox O2 Delivery O2 Flow Rate FiO2 04/22/16 20:00 98.2 75 18 133/70 95 Room Air 04/22/16 18:02 97.0 04/22/16 16:00 97.0 74 18 115/55 96 Room Air 04/22/16 12:01 98.1 79 18 115/61 94 Room Air 04/22/16 08:46 89 123/65 04/22/16 08:43 123/65 04/22/16 08:00 97.2 89 18 123/65 96 Room Air 04/22/16 04:37 98.2 04/22/16 04:00 97.7 66 16 111/52 94 Room Air 04/22/16 02:45 98.2 79 16 118/61 92 Room Air 04/22/16 00:00 98.2 79 16 118/61 92 Room Air Intake and Output 04/21/16 04/22/16 19:00 07:00 Intake Total 895 ml 570.000 ml Output Total 150 ml Balance 895 ml 420.000 ml Intake Oral 840 ml 240 ml IV Total 55 ml 330.000 ml Output Urine Total 150 ml # Voids 5 3 General Appearance: no acute distress HEENT: normocephalic, atraumatic, PERRL Respiratory/Chest: chest wall non-tender, decreased breath sounds, accessory muscle use Breasts: no masses Cardiovascular: normal peripheral pulses, normal rate, regular rhythm, no JVD Abdomen: normal bowel sounds, soft, non tender, no organomegaly, non distended Extremities: no cyanosis Skin: rash, lesions, ulcers Neurologic/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: 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 grossly normal, responsive, disoriented Microbiology Date/Time Source Procedure Growth Status 04/20/16 23:00 Urine,Clean Catch Urine Culture - Preliminary Gram Negative Bacillus 1 Resulted 04/21/16 06:00 Buttock Right Gram Stain - Final Resulted 04/21/16 06:00 Wound Culture - Preliminary Gram Negative Bacillus 1 Gram Negative Bacillus 2 Resulted Laboratory Tests 04/22/16 04:35: White Blood Count 5.6, Red Blood Count 3.44L, Hemoglobin 10.8L, Hematocrit 31.4L , Mean Corpuscular Volume 91, Mean Corpuscular Hemoglobin 31.6H, Mean Corpuscular Hemoglobin Concent 34.6, Red Cell Distribution Width 11.9, Platelet Count 299, Mean Platelet Volume 5.7L, Neutrophils (%) (Auto) 43.9L, Lymphocytes (%) (Auto) 43.1, Monocytes (%) (Auto) 8.6, Eosinophils (%) (Auto) 3.4H, Basophils (%) (Auto) 1.0, Sodium Level 138, Potassium Level 3.8, Chloride Level 98, Carbon Dioxide Level 29, Anion Gap 11, Blood Urea Nitrogen 16, Creatinine 0.7, Estimat Glomerular Filtration Rate , Glucose Level 274H, Hemoglobin A1c 9.4H, Calcium Level 9.2, Total Bilirubin 0.2, Aspartate Amino Transf (AST/SGOT) 16, Alanine Aminotransferase (ALT/SGPT) 16, Alkaline Phosphatase 101, Total Protein 6.6, Albumin 3.6, Globulin 3.0, Albumin/Globulin Ratio 1.2, Triglycerides Level 232H, Cholesterol Level 126, LDL Cholesterol 46L, HDL Cholesterol 34, Cholesterol/HDL Ratio 3.7, Thyroid Stimulating Hormone (TSH) 2.020 Current Medications Medications (Trade) Dose Ordered Sig/Avni Route PRN Reason Start Time Stop Time Status Last Admin Dose Admin Acetaminophen (Tylenol) 650 mg Q4H PRN ORAL Mild Pain/Temp > 100.5 04/23/16 00:30 05/23/16 00:29 UNV Al Hydroxide/Mg Hydroxide (Mylanta II) 30 ml Q6H PRN ORAL dyspepsia 04/21/16 00:30 05/21/16 00:29 Amlodipine Besylate (Norvasc) 5 mg DAILY ORAL 04/21/16 09:00 05/21/16 08:59 04/22/16 08:46 Aspirin (Ecotrin) 81 mg DAILY ORAL 04/22/16 09:00 05/22/16 08:59 04/22/16 08:46 Atorvastatin Calcium (Lipitor) 20 mg BEDTIME ORAL 04/21/16 21:00 05/21/16 20:59 04/22/16 20:26 Cefepime HCl/ Dextrose (Maxipime/D5W) 55 ml @ 110 mls/hr DAILY IV 04/23/16 09:00 04/29/16 08:59 Dextrose STAT PRN IV Hypoglycemia 04/21/16 17:30 05/21/16 17:29 Gabapentin (Neurontin) 800 mg THREE TIMES A DAY ORAL 04/21/16 18:00 05/21/16 17:59 04/22/16 17:03 Heparin Sodium (Porcine) (Heparin 5000 units/ml) 5,000 units EVERY 12 HOURS SUBQ 04/21/16 09:00 05/21/16 08:59 Insulin Aspart (NovoLOG) BEFORE MEALS AND HS SUBQ 04/21/16 21:00 05/21/16 20:59 04/22/16 20:28 Lorazepam (Ativan 2mg/ml 1ml) 0.5 mg Q4H PRN IV For Anxiety 04/21/16 00:30 04/28/16 00:29 Losartan Potassium (Cozaar) 100 mg DAILY ORAL 04/21/16 09:00 05/21/16 08:59 04/22/16 08:43 Metformin HCl (Glucophage) 1,000 mg BIAC ORAL 04/22/16 06:30 05/22/16 06:29 04/22/16 17:02 Morphine Sulfate (Morphine Sulfate) 1 mg EVERY 4 HOURS PRN IVP For Pain 04/21/16 00:30 04/28/16 00:29 04/21/16 16:31 Ondansetron HCl (Zofran) 4 mg Q6H PRN IVP Nausea & Vomiting 04/21/16 00:30 05/21/16 00:29 04/21/16 03:52 Polyethylene Glycol (Miralax) 17 gm HSPRN PRN ORAL Constipation 04/21/16 00:30 05/21/16 00:29 Vancomycin HCl (Vanco rx to dose) 1 ea DAILY PRN MISC Per rx protocol 04/21/16 00:30 05/21/16 00:29 Vancomycin HCl 750 mg/Dextrose 275 ml @ 183.708 mls/hr Q24H IVPB 04/21/16 21:00 04/26/16 20:59 04/22/16 20:26 Zolpidem Tartrate (Ambien) 5 mg HSPRN PRN ORAL Insomnia 04/21/16 00:30 05/21/16 00:29 CHIDI STEPHEN Apr 22, 2016 22:01
[2016-04-23] VITALS: BP 141/78
[2016-04-23 04:00] VITALS: BP 131/73
[2016-04-23] MEDS: metFORMIN 500mg tab ORAL SCH ×2 (06:02→17:34)
[2016-04-23] MEDS: NovoLOG Insulin Flexpen SUBQ SCH ×4 (06:03→20:53)
[2016-04-23 08:00] VITALS: BP 135/76
[2016-04-23] MEDS: Losartan 50mg tab ORAL SCH (08:05)
[2016-04-23] MEDS: Aspirin EC 81mg tab ORAL SCH (08:05)
[2016-04-23] MEDS: Heparin 5000 units/ml inj SUBQ SCH ×2 (08:08→20:50)
--- NOTE | 2016-04-23 08:53 | Infectious Diseases Prog Note ---
Assessment/Plan Assessment/Plan A: This is a 75-year-old female with Right buttock ulcer Wnd infection Wnd Cx : GNR x 2 Ucx'; GNR ( Colonizer ) History of cataract. DM Diabetic neuropathy. HLD HTN Right ankle fracture status post surgery in 2016 PLAN: Cont pt on IV vancomycin and cefepime d# 3 / 5- 7 , upon DC will change to PO Augmentin Monitor CBC monitor BMP. Wound culture. Recommend surgery eval Subjective Constitutional: Denies: anorexia, chills, drenching sweats, fatigue, fever, no symptoms, other Allergies: Coded Allergies: No Known Allergies (Unverified , 01/23/16) Objective Vital Signs Last 24 Hour Vital Signs Date Time Temp Pulse Resp B/P Pulse Ox O2 Delivery O2 Flow Rate FiO2 04/23/16 08:05 131/73 04/23/16 08:05 81 131/73 04/23/16 08:00 97.5 92 19 135/76 96 Room Air 04/23/16 04:00 97.8 81 18 131/73 95 Room Air 04/23/16 00:00 97.9 84 18 141/78 94 Room Air 04/22/16 23:23 98.2 04/22/16 20:00 98.2 75 18 133/70 95 Room Air 04/22/16 18:02 97.0 04/22/16 16:00 97.0 74 18 115/55 96 Room Air 04/22/16 12:01 98.1 79 18 115/61 94 Room Air Height (Feet): 5 Height (Inches): 2.00 Weight (Pounds): 110 HEENT: anicteric Cardiovascular: regular rhythm Abdomen: no mass Microbiology Date/Time Source Procedure Growth Status 04/21/16 08:00 Blood Blood Culture - Preliminary NO GROWTH AFTER 24 HOURS Resulted 04/21/16 07:45 Blood Blood Culture - Preliminary NO GROWTH AFTER 24 HOURS Resulted 04/20/16 23:00 Urine,Clean Catch Urine Culture - Preliminary Gram Negative Bacillus 1 Resulted 04/21/16 06:00 Buttock Right Gram Stain - Final Resulted 04/21/16 06:00 Wound Culture - Preliminary Gram Negative Bacillus 1 Gram Negative Bacillus 2 Resulted Current Medications Medications (Trade) Dose Ordered Sig/Avni Route PRN Reason Start Time Stop Time Status Last Admin Dose Admin Acetaminophen (Tylenol) 650 mg Q4H PRN ORAL Mild Pain/Temp > 100.5 04/22/16 22:05 05/22/16 22:04 04/23/16 08:16 Al Hydroxide/Mg Hydroxide (Mylanta II) 30 ml Q6H PRN ORAL dyspepsia 04/21/16 00:30 05/21/16 00:29 Amlodipine Besylate (Norvasc) 5 mg DAILY ORAL 04/21/16 09:00 05/21/16 08:59 04/23/16 08:05 Aspirin (Ecotrin) 81 mg DAILY ORAL 04/22/16 09:00 05/22/16 08:59 04/23/16 08:05 Atorvastatin Calcium (Lipitor) 20 mg BEDTIME ORAL 04/21/16 21:00 05/21/16 20:59 04/22/16 20:26 Cefepime HCl/ Dextrose (Maxipime/D5W) 55 ml @ 110 mls/hr DAILY IV 04/23/16 09:00 04/29/16 08:59 Dextrose STAT PRN IV Hypoglycemia 04/21/16 17:30 05/21/16 17:29 Gabapentin (Neurontin) 800 mg THREE TIMES A DAY ORAL 04/21/16 18:00 05/21/16 17:59 04/23/16 08:06 Heparin Sodium (Porcine) (Heparin 5000 units/ml) 5,000 units EVERY 12 HOURS SUBQ 04/21/16 09:00 05/21/16 08:59 Insulin Aspart (NovoLOG) BEFORE MEALS AND HS SUBQ 04/21/16 21:00 05/21/16 20:59 04/23/16 06:03 Lorazepam (Ativan 2mg/ml 1ml) 0.5 mg Q4H PRN IV For Anxiety 04/21/16 00:30 04/28/16 00:29 Losartan Potassium (Cozaar) 100 mg DAILY ORAL 04/21/16 09:00 05/21/16 08:59 04/23/16 08:05 Metformin HCl (Glucophage) 1,000 mg BIAC ORAL 04/22/16 06:30 05/22/16 06:29 04/23/16 06:02 Morphine Sulfate (Morphine Sulfate) 1 mg EVERY 4 HOURS PRN IVP For Pain 04/21/16 00:30 04/28/16 00:29 04/21/16 16:31 Ondansetron HCl (Zofran) 4 mg Q6H PRN IVP Nausea & Vomiting 04/21/16 00:30 05/21/16 00:29 04/21/16 03:52 Polyethylene Glycol (Miralax) 17 gm HSPRN PRN ORAL Constipation 04/21/16 00:30 05/21/16 00:29 Vancomycin HCl (Vanco rx to dose) 1 ea DAILY PRN MISC Per rx protocol 04/21/16 00:30 05/21/16 00:29 Vancomycin HCl 750 mg/Dextrose 275 ml @ 183.708 mls/hr Q24H IVPB 04/21/16 21:00 04/26/16 20:59 04/22/16 20:26 Zolpidem Tartrate (Ambien) 5 mg HSPRN PRN ORAL Insomnia 04/21/16 00:30 05/21/16 00:29 NOLA GAYTAN M.D. Apr 23, 2016 08:53
[2016-04-23] MEDS: Cefepime HCl 1 GM in D5W 55 ML IV SCH (08:54)
[2016-04-23 12:04] VITALS: BP 151/78
[2016-04-23] MEDS ORDERED: Lidocaine 1% 10mg/ml/Epi 0.005mg/ml 30ml vial INJ ONE (15:00)
--- NOTE | 2016-04-23 15:42 | Cardiology Report ---
APPROVED REPORT EKG Measurement Heart [id number] Normal sinus rhythm Nonspecific T wave abnormality Abnormal ECG
[2016-04-23 16:00] VITALS: BP 144/68
--- NOTE | 2016-04-23 17:19 | Pulmonology Progress Note ---
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 ROS Limited/Unobtainable: No Constitutional: Reports: anorexia, chills, fatigue, fever Skin: Reports: other, rash, ulcer Musculoskeletal: Reports: pain, stiffness, swelling Allergies: Coded Allergies: No Known Allergies (Unverified , 01/23/16) Objective Last 24 Hour Vital Signs Date Time Temp Pulse Resp B/P Pulse Ox O2 Delivery O2 Flow Rate FiO2 04/23/16 16:00 97.5 85 18 144/68 98 Room Air 04/23/16 13:59 97.2 04/23/16 12:04 97.2 83 20 151/78 97 Room Air 04/23/16 09:15 97.8 04/23/16 08:05 131/73 04/23/16 08:05 81 131/73 04/23/16 08:00 97.5 92 19 135/76 96 Room Air 04/23/16 04:00 97.8 81 18 131/73 95 Room Air 04/23/16 00:00 97.9 84 18 141/78 94 Room Air 04/22/16 20:00 98.2 75 18 133/70 95 Room Air Intake and Output 04/22/16 04/23/16 19:00 07:00 Intake Total 870 ml 835.000 ml Balance 870 ml 835.000 ml Intake Oral 870 ml 560 ml IV Total 275.000 ml # Voids 5 3 # Bowel Movements 2 1 General Appearance: no acute distress HEENT: normocephalic, atraumatic, PERRL Respiratory/Chest: chest wall non-tender, decreased breath sounds, accessory muscle use Breasts: no masses Cardiovascular: normal peripheral pulses, normal rate, regular rhythm Abdomen: normal bowel sounds, soft, non tender, no organomegaly, non distended Genitourinary: normal external genitalia Skin: rash, lesions, ulcers Neurologic/Psychiatric: case manager specialist II-XII grossly normal, no motor/sensory deficits Microbiology Date/Time Source Procedure Growth Status 04/21/16 08:00 Blood Blood Culture - Preliminary NO GROWTH AFTER 24 HOURS Resulted 04/21/16 07:45 Blood Blood Culture - Preliminary NO GROWTH AFTER 24 HOURS Resulted 04/20/16 23:00 Urine,Clean Catch Urine Culture - Final Klebsiella Pneumoniae Complete 04/21/16 06:00 Buttock Right Gram Stain - Final Resulted 04/21/16 06:00 Wound Culture - Preliminary Klebsiella Pneumoniae Proteus Mirabilis Streptococcus Group F Resulted Current Medications Medications (Trade) Dose Ordered Sig/Avni Route PRN Reason Start Time Stop Time Status Last Admin Dose Admin Acetaminophen (Tylenol) 650 mg Q4H PRN ORAL Mild Pain/Temp > 100.5 04/22/16 22:05 05/22/16 22:04 04/23/16 08:16 Al Hydroxide/Mg Hydroxide (Mylanta II) 30 ml Q6H PRN ORAL dyspepsia 04/21/16 00:30 05/21/16 00:29 Amlodipine Besylate (Norvasc) 5 mg DAILY ORAL 04/21/16 09:00 05/21/16 08:59 04/23/16 08:05 Aspirin (Ecotrin) 81 mg DAILY ORAL 04/22/16 09:00 05/22/16 08:59 04/23/16 08:05 Atorvastatin Calcium (Lipitor) 20 mg BEDTIME ORAL 04/21/16 21:00 05/21/16 20:59 04/22/16 20:26 Cefepime HCl/ Dextrose (Maxipime/D5W) 55 ml @ 110 mls/hr DAILY IV 04/23/16 09:00 04/29/16 08:59 04/23/16 08:54 Dextrose STAT PRN IV Hypoglycemia 04/21/16 17:30 05/21/16 17:29 Gabapentin (Neurontin) 800 mg THREE TIMES A DAY ORAL 04/21/16 18:00 05/21/16 17:59 04/23/16 13:00 Heparin Sodium (Porcine) (Heparin 5000 units/ml) 5,000 units EVERY 12 HOURS SUBQ 04/21/16 09:00 05/21/16 08:59 Insulin Aspart (NovoLOG) BEFORE MEALS AND HS SUBQ 04/21/16 21:00 05/21/16 20:59 04/23/16 12:52 Lorazepam (Ativan 2mg/ml 1ml) 0.5 mg Q4H PRN IV For Anxiety 04/21/16 00:30 04/28/16 00:29 Losartan Potassium (Cozaar) 100 mg DAILY ORAL 04/21/16 09:00 05/21/16 08:59 04/23/16 08:05 Metformin HCl (Glucophage) 1,000 mg BIAC ORAL 04/22/16 06:30 05/22/16 06:29 04/23/16 06:02 Morphine Sulfate (Morphine Sulfate) 1 mg EVERY 4 HOURS PRN IVP For Pain 04/21/16 00:30 04/28/16 00:29 04/21/16 16:31 Ondansetron HCl (Zofran) 4 mg Q6H PRN IVP Nausea & Vomiting 04/21/16 00:30 05/21/16 00:29 04/21/16 03:52 Polyethylene Glycol (Miralax) 17 gm HSPRN PRN ORAL Constipation 04/21/16 00:30 05/21/16 00:29 Vancomycin HCl (Vanco rx to dose) 1 ea DAILY PRN MISC Per rx protocol 04/21/16 00:30 05/21/16 00:29 Vancomycin HCl 750 mg/Dextrose 275 ml @ 183.708 mls/hr Q24H IVPB 04/21/16 21:00 04/26/16 20:59 04/22/16 20:26 Zolpidem Tartrate (Ambien) 5 mg HSPRN PRN ORAL Insomnia 04/21/16 00:30 05/21/16 00:29 CHIDI STEPHEN Apr 23, 2016 17:19
[2016-04-23] MEDS ORDERED: NS 275ml ONE ×2 (17:25→20:51)
[2016-04-23] MEDS ORDERED: Tubing IV Secondary IV ONE ×2 (17:25→20:51)
--- NOTE | 2016-04-23 17:28 | Consultation ---
History of Present Illness General Date patient seen: Apr 27, 2016 Chief Complaint: Skin Rash/Abscess Reason for Consultation: laceration traumautic right buttock Present Illness HPI 75 f s/p fall at home sustained a laceration to her right buttock. surgery called for wound care / repair. please see H&P for details of hospital stay. when seen at bedside patient well and s/p ORIF ankle. states that her buttock laceration causes pain. Allergies: Coded Allergies: No Known Allergies (Unverified , 01/23/16) Medication History Scheduled Amlodipine Besylate* (Amlodipine Besylate*), 5 MG ORAL DAILY, (Reported) Aspirin* (Aspir 81*), 81 MG ORAL DAILY, (Reported) Atorvastatin Calcium* (Atorvastatin Calcium*), 20 MG ORAL BEDTIME, (Reported) Gabapentin* (Gabapentin*), 800 MG ORAL THREE TIMES A DAY, (Reported) Losartan Potassium* (Losartan Potassium*), 100 MG ORAL DAILY, (Reported) Metformin Hcl* (Metformin Hcl*), 1,000 MG ORAL TWICE A DAY, (Reported) Miscellaneous Medications Insulin Aspart* (Novolog*), 0 SUBQ, (Reported) Patient History History Provided By: Patient, Family Member Healthcare decision maker pt alert and oriented Resuscitation status Advanced Directive on File Past Medical/Surgical History Past Medical/Surgical History: (1) Acute encephalopathy (2) E coli infection (3) Bimalleolar fracture of right ankle (4) Boil, buttock (5) Chest wall abscess (6) Urinary tract infection (7) Cellulitis (8) Diabetic ulcer of buttock (9) Diabetes mellitus (10) HTN (hypertension) (11) Hypertension Review of Systems All Other Systems: negative except mentioned in HPI Physical Exam Genitourinary/Rectal: other - right buttock laceration noted 5cm in length 2 cm wide and 1cm deep. clean wound. no signs of infection. Last 24 Hour Vital Signs Date Time Temp Pulse Resp B/P Pulse Ox O2 Delivery O2 Flow Rate FiO2 04/23/16 16:00 97.5 85 18 144/68 98 Room Air 04/23/16 13:59 97.2 04/23/16 12:04 97.2 83 20 151/78 97 Room Air 04/23/16 09:15 97.8 04/23/16 08:05 131/73 04/23/16 08:05 81 131/73 04/23/16 08:00 97.5 92 19 135/76 96 Room Air 04/23/16 04:00 97.8 81 18 131/73 95 Room Air 04/23/16 00:00 97.9 84 18 141/78 94 Room Air 04/22/16 20:00 98.2 75 18 133/70 95 Room Air Intake and Output 04/22/16 04/23/16 19:00 07:00 Intake Total 870 ml 835.000 ml Balance 870 ml 835.000 ml Intake Oral 870 ml 560 ml IV Total 275.000 ml # Voids 5 3 # Bowel Movements 2 1 Height (Feet): 5 Height (Inches): 2.00 Weight (Pounds): 110 Medications Current Medications Medications (Trade) Dose Ordered Sig/Avni Route PRN Reason Start Time Stop Time Status Last Admin Dose Admin Acetaminophen (Tylenol) 650 mg Q4H PRN ORAL Mild Pain/Temp > 100.5 04/22/16 22:05 05/22/16 22:04 04/23/16 08:16 Al Hydroxide/Mg Hydroxide (Mylanta II) 30 ml Q6H PRN ORAL dyspepsia 04/21/16 00:30 05/21/16 00:29 Amlodipine Besylate (Norvasc) 5 mg DAILY ORAL 04/21/16 09:00 05/21/16 08:59 04/23/16 08:05 Aspirin (Ecotrin) 81 mg DAILY ORAL 04/22/16 09:00 05/22/16 08:59 04/23/16 08:05 Atorvastatin Calcium (Lipitor) 20 mg BEDTIME ORAL 04/21/16 21:00 05/21/16 20:59 04/22/16 20:26 Cefepime HCl/ Dextrose (Maxipime/D5W) 55 ml @ 110 mls/hr DAILY IV 04/23/16 09:00 04/29/16 08:59 04/23/16 08:54 Dextrose STAT PRN IV Hypoglycemia 04/21/16 17:30 05/21/16 17:29 Gabapentin (Neurontin) 800 mg THREE TIMES A DAY ORAL 04/21/16 18:00 05/21/16 17:59 04/23/16 13:00 Heparin Sodium (Porcine) (Heparin 5000 units/ml) 5,000 units EVERY 12 HOURS SUBQ 04/21/16 09:00 05/21/16 08:59 Insulin Aspart (NovoLOG) BEFORE MEALS AND HS SUBQ 04/21/16 21:00 05/21/16 20:59 04/23/16 12:52 Lorazepam (Ativan 2mg/ml 1ml) 0.5 mg Q4H PRN IV For Anxiety 04/21/16 00:30 04/28/16 00:29 Losartan Potassium (Cozaar) 100 mg DAILY ORAL 04/21/16 09:00 05/21/16 08:59 04/23/16 08:05 Metformin HCl (Glucophage) 1,000 mg BIAC ORAL 04/22/16 06:30 05/22/16 06:29 04/23/16 06:02 Morphine Sulfate (Morphine Sulfate) 1 mg EVERY 4 HOURS PRN IVP For Pain 04/21/16 00:30 04/28/16 00:29 04/21/16 16:31 Ondansetron HCl (Zofran) 4 mg Q6H PRN IVP Nausea & Vomiting 04/21/16 00:30 05/21/16 00:29 04/21/16 03:52 Polyethylene Glycol (Miralax) 17 gm HSPRN PRN ORAL Constipation 04/21/16 00:30 05/21/16 00:29 Vancomycin HCl (Vanco rx to dose) 1 ea DAILY PRN MISC Per rx protocol 04/21/16 00:30 05/21/16 00:29 Vancomycin HCl 750 mg/Dextrose 275 ml @ 183.708 mls/hr Q24H IVPB 04/21/16 21:00 04/26/16 20:59 04/22/16 20:26 Zolpidem Tartrate (Ambien) 5 mg HSPRN PRN ORAL Insomnia 04/21/16 00:30 05/21/16 00:29 Assessment/Plan Problem List: (1) Laceration of buttock ICD Codes: S31.801A - Laceration without foreign body of unspecified buttock, initial encounter SNOMED: [id number], [id number] Assessment/Plan 75 F s/p fall with buttock laceration. wound clean. re-approximation recommended. - will do bedside wound washout and closure - keep wound clean and dry - wound care and instructions given to at bedside - follow up with me in 2 weeks for suture removal. Jeovany Beasley Apr 23, 2016 17:27
--- NOTE | 2016-04-23 17:32 | Operative Note - PDOC ---
Operative Note Operative Note Date of Operation/Procedure: Apr 23, 2016 Pre-op Diagnosis: traumatic laceration right buttock 5cm Procedure: right buttock laceration washout and closure. Post-op Diagnosis: same as pre-op Operative Findings: consistent w/pre-op dx studies Surgeon: Gale Anesthesiologist: n/a Anesthesia: local Specimen: none Complications: none Condition: stable Fluids: n/a Estimated Blood Loss: none Drains: none Packing: n/a Implant(s) used?: No Indications for Procedure 75 F s/p fall with clean laceration to right buttock. Washout and repair indicated. Risks, benefits, and alternatives discussed in detail. patient expressed understanding and consented to procedure. Description of Procedure Patient was made comfortable at bedside. she was placed on her left side. appropriate time out was taken. wound was evaluated, washed with sterile saline , and cleaned. 1% lidocaine with epi was infiltrated around wound. 4-0 nylon suture was used to reapproximate wound. Once wound was reapproximated it was cleaned and dressings were applied. patient tolerated procedure well. Jeovany Beasley Apr 23, 2016 17:32
[2016-04-23 20:00] VITALS: BP 118/64
[2016-04-23] MEDS: Atorvastatin 20mg tab ORAL SCH (20:51)
[2016-04-23] MEDS: Vancomycin 1gm/D5W 275ml IVPB SCH ×2 (21:41)
[2016-04-24] VITALS: BP 131/69
[2016-04-24 04:00] VITALS: BP 124/56
[2016-04-24] MEDS: metFORMIN 500mg tab ORAL SCH ×2 (06:55→16:53)
[2016-04-24] MEDS: NovoLOG Insulin Flexpen SUBQ SCH ×4 (06:59→22:20)
[2016-04-24] MEDS: Aspirin EC 81mg tab ORAL SCH (08:04)
[2016-04-24] MEDS: Losartan 50mg tab ORAL SCH (08:06)
[2016-04-24] MEDS: Heparin 5000 units/ml inj SUBQ SCH ×2 (08:06→21:00)
[2016-04-24 08:16] VITALS: BP 142/72
[2016-04-24] MEDS: Cefepime HCl 1 GM in D5W 55 ML IV SCH (10:50)
[2016-04-24 11:44] VITALS: BP 105/52
--- NOTE | 2016-04-24 14:03 | General Progress Note ---
Progress Note Progress Note patient seen and examined at bedside. doing well. no acute events. pain improved. wound evaluated and looks clean with no drainage. no erythema. sutures holding well. dressings prn follow up with me in 2 weeks for suture removal after discharge. Jeovany Beasley Apr 24, 2016 14:03
[2016-04-24 16:06] VITALS: BP 128/66
--- NOTE | 2016-04-24 17:57 | Infectious Diseases Prog Note ---
Assessment/Plan Assessment/Plan A: This is a 75-year-old female with Right buttock ulcer 2/2 SP right buttock laceration washout and closure Wnd infection Wnd Cx : polymicrobial Ucx'; GNR ( Colonizer ) History of cataract. DM Diabetic neuropathy. HLD HTN Right ankle fracture status post surgery in 2016 PLAN: Cont pt on IV vancomycin and cefepime d# 4 / 5- 7 , upon DC will change to PO Augmentin x 3 d ( Rx in chart ) Monitor CBC monitor BMP. Subjective Constitutional: Denies: anorexia, chills, drenching sweats, fatigue, fever, no symptoms, other Allergies: Coded Allergies: No Known Allergies (Unverified , 01/23/16) Objective Vital Signs Last 24 Hour Vital Signs Date Time Temp Pulse Resp B/P Pulse Ox O2 Delivery O2 Flow Rate FiO2 04/24/16 16:06 97.9 75 21 128/66 97 Room Air 04/24/16 13:42 97.5 04/24/16 11:44 97.5 72 20 105/52 97 Room Air 04/24/16 09:08 97.7 04/24/16 08:16 97.7 91 20 142/72 97 Room Air 04/24/16 08:06 142/72 04/24/16 08:05 91 142/72 04/24/16 04:00 97.2 80 16 124/56 94 Room Air 04/24/16 00:00 97.9 73 18 131/69 95 Room Air 04/23/16 20:00 98.1 87 19 118/64 97 Room Air Height (Feet): 5 Height (Inches): 2.00 Weight (Pounds): 110 HEENT: mucous membranes moist Respiratory/Chest: no respiratory distress Cardiovascular: no JVD Laboratory Tests Test 04/23/16 20:15 Vancomycin Level Trough 7.6 ug/mL (5.0-12.0) Current Medications Medications (Trade) Dose Ordered Sig/Avni Route PRN Reason Start Time Stop Time Status Last Admin Dose Admin Acetaminophen 650 mg 650 mg Q4H PRN ORAL Mild Pain/Temp > 100.5 04/22/16 22:05 05/22/16 22:04 04/24/16 08:09 Al Hydroxide/Mg Hydroxide (Mylanta II) 30 ml Q6H PRN ORAL dyspepsia 04/21/16 00:30 05/21/16 00:29 Amlodipine Besylate (Norvasc) 5 mg DAILY ORAL 04/21/16 09:00 05/21/16 08:59 04/24/16 08:05 Aspirin (Ecotrin) 81 mg DAILY ORAL 04/22/16 09:00 05/22/16 08:59 04/24/16 08:04 Atorvastatin Calcium (Lipitor) 20 mg BEDTIME ORAL 04/21/16 21:00 05/21/16 20:59 04/23/16 20:51 Cefepime HCl/ Dextrose (Maxipime/D5W) 55 ml @ 110 mls/hr DAILY IV 04/23/16 09:00 04/29/16 08:59 04/24/16 10:50 Dextrose STAT PRN IV Hypoglycemia 04/21/16 17:30 05/21/16 17:29 Gabapentin (Neurontin) 800 mg THREE TIMES A DAY ORAL 04/21/16 18:00 05/21/16 17:59 04/24/16 16:52 Heparin Sodium (Porcine) (Heparin 5000 units/ml) 5,000 units EVERY 12 HOURS SUBQ 04/21/16 09:00 05/21/16 08:59 Insulin Aspart (NovoLOG) BEFORE MEALS AND HS SUBQ 04/21/16 21:00 05/21/16 20:59 04/24/16 16:54 Lorazepam (Ativan 2mg/ml 1ml) 0.5 mg Q4H PRN IV For Anxiety 04/21/16 00:30 04/28/16 00:29 Losartan Potassium (Cozaar) 100 mg DAILY ORAL 04/21/16 09:00 05/21/16 08:59 04/24/16 08:06 Metformin HCl (Glucophage) 1,000 mg BIAC ORAL 04/22/16 06:30 05/22/16 06:29 04/24/16 16:53 Morphine Sulfate (Morphine Sulfate) 1 mg EVERY 4 HOURS PRN IVP For Pain 04/21/16 00:30 04/28/16 00:29 04/21/16 16:31 Ondansetron HCl (Zofran) 4 mg Q6H PRN IVP Nausea & Vomiting 04/21/16 00:30 05/21/16 00:29 04/21/16 03:52 Polyethylene Glycol (Miralax) 17 gm HSPRN PRN ORAL Constipation 04/21/16 00:30 05/21/16 00:29 Vancomycin HCl (Vanco rx to dose) 1 ea DAILY PRN MISC Per rx protocol 04/21/16 00:30 05/21/16 00:29 Vancomycin HCl/ Dextrose (Vancomycin/D5W) 275 ml @ 183.708 mls/hr Q24H IVPB 04/23/16 22:00 04/28/16 21:59 04/23/16 21:41 Zolpidem Tartrate (Ambien) 5 mg HSPRN PRN ORAL Insomnia 04/21/16 00:30 05/21/16 00:29 NOLA GAYTAN M.D. Apr 24, 2016 17:57
--- NOTE | 2016-04-24 17:59 | Pulmonology Progress Note ---
Assessment/Plan Assessment/Plan ASSESSMENT traumatic laceration of R buttock s/p laceration washout and closure DM HTN diabetic neuropathy hyperlipidemia UTI/Klebsiella -colonized as per ID PLAN OF CARE MS floor CT A/P c/w cellulitis R inferior gluteal fold s/p 2/2 laceration washout and closure abx, ID follows urine cx + Klebsiella (per ID -colonized), blood cx - negative; wound cx + Klebsiella, Proteus. Strep group F wound care surgery follows f/up with surgery as outpt in 2 wks for suture removal BS management wti SS of insulin BP management pain management PT/OT DVT prophylaxis continue statin, lipid panel with elevated TG, educated on low fat low cholesterol diet case discussed and evaluated by supervising physician Subjective Allergies: Coded Allergies: No Known Allergies (Unverified , 01/23/16) Subjective wound healing well afebrile, no leukocytosis surgery follows Objective Last 24 Hour Vital Signs Date Time Temp Pulse Resp B/P Pulse Ox O2 Delivery O2 Flow Rate FiO2 04/24/16 16:06 97.9 75 21 128/66 97 Room Air 04/24/16 13:42 97.5 04/24/16 11:44 97.5 72 20 105/52 97 Room Air 04/24/16 09:08 97.7 04/24/16 08:16 97.7 91 20 142/72 97 Room Air 04/24/16 08:06 142/72 04/24/16 08:05 91 142/72 04/24/16 04:00 97.2 80 16 124/56 94 Room Air 04/24/16 00:00 97.9 73 18 131/69 95 Room Air 04/23/16 20:00 98.1 87 19 118/64 97 Room Air Intake and Output 04/23/16 04/24/16 19:00 07:00 Intake Total 610 ml 360 ml Output Total 150 ml Balance 610 ml 210 ml Intake Oral 500 ml 360 ml IV Total 110 ml Output Urine Total 150 ml # Voids 5 3 General Appearance: no acute distress, other - awake, alert HEENT: normocephalic, atraumatic, anicteric, mucous membranes moist Respiratory/Chest: lungs clear, no respiratory distress Cardiovascular: normal peripheral pulses, normal rate, regular rhythm Abdomen: normal bowel sounds, soft, non tender Genitourinary: normal external genitalia Skin: other - R buttock with dressing C/.D/I Neurologic/Psychiatric: alert, responsive Laboratory Tests 04/23/16 20:15: Vancomycin Level Trough 7.6 Current Medications Medications (Trade) Dose Ordered Sig/Avni Route PRN Reason Start Time Stop Time Status Last Admin Dose Admin Acetaminophen 650 mg 650 mg Q4H PRN ORAL Mild Pain/Temp > 100.5 04/22/16 22:05 05/22/16 22:04 04/24/16 08:09 Al Hydroxide/Mg Hydroxide (Mylanta II) 30 ml Q6H PRN ORAL dyspepsia 04/21/16 00:30 05/21/16 00:29 Amlodipine Besylate (Norvasc) 5 mg DAILY ORAL 04/21/16 09:00 05/21/16 08:59 04/24/16 08:05 Aspirin (Ecotrin) 81 mg DAILY ORAL 04/22/16 09:00 05/22/16 08:59 04/24/16 08:04 Atorvastatin Calcium (Lipitor) 20 mg BEDTIME ORAL 04/21/16 21:00 05/21/16 20:59 04/23/16 20:51 Cefepime HCl/ Dextrose (Maxipime/D5W) 55 ml @ 110 mls/hr DAILY IV 04/23/16 09:00 04/29/16 08:59 04/24/16 10:50 Dextrose STAT PRN IV Hypoglycemia 04/21/16 17:30 05/21/16 17:29 Gabapentin (Neurontin) 800 mg THREE TIMES A DAY ORAL 04/21/16 18:00 05/21/16 17:59 04/24/16 16:52 Heparin Sodium (Porcine) (Heparin 5000 units/ml) 5,000 units EVERY 12 HOURS SUBQ 04/21/16 09:00 05/21/16 08:59 Insulin Aspart (NovoLOG) BEFORE MEALS AND HS SUBQ 04/21/16 21:00 05/21/16 20:59 04/24/16 16:54 Lorazepam (Ativan 2mg/ml 1ml) 0.5 mg Q4H PRN IV For Anxiety 04/21/16 00:30 04/28/16 00:29 Losartan Potassium (Cozaar) 100 mg DAILY ORAL 04/21/16 09:00 05/21/16 08:59 04/24/16 08:06 Metformin HCl (Glucophage) 1,000 mg BIAC ORAL 04/22/16 06:30 05/22/16 06:29 04/24/16 16:53 Morphine Sulfate (Morphine Sulfate) 1 mg EVERY 4 HOURS PRN IVP For Pain 04/21/16 00:30 04/28/16 00:29 04/21/16 16:31 Ondansetron HCl (Zofran) 4 mg Q6H PRN IVP Nausea & Vomiting 04/21/16 00:30 05/21/16 00:29 04/21/16 03:52 Polyethylene Glycol (Miralax) 17 gm HSPRN PRN ORAL Constipation 04/21/16 00:30 05/21/16 00:29 Vancomycin HCl (Vanco rx to dose) 1 ea DAILY PRN MISC Per rx protocol 04/21/16 00:30 05/21/16 00:29 Vancomycin HCl/ Dextrose (Vancomycin/D5W) 275 ml @ 183.708 mls/hr Q24H IVPB 04/23/16 22:00 04/28/16 21:59 04/23/16 21:41 Zolpidem Tartrate (Ambien) 5 mg HSPRN PRN ORAL Insomnia 04/21/16 00:30 05/21/16 00:29 Jonathon (Andre)Codi NP Apr 24, 2016 17:59
[2016-04-24] MEDS ORDERED: Tubing IV Secondary IV ONE (18:15)
[2016-04-24 20:00] VITALS: BP 132/57
[2016-04-24] MEDS: Atorvastatin 20mg tab ORAL SCH (22:19)
[2016-04-24] MEDS: Vancomycin 1gm/D5W 275ml IVPB SCH ×2 (22:20)
[2016-04-25] VITALS: BP 121/64
[2016-04-25 04:06] VITALS: BP 109/54
[2016-04-25] MEDS: metFORMIN 500mg tab ORAL SCH (06:05)
[2016-04-25] MEDS: NovoLOG Insulin Flexpen SUBQ SCH ×2 (06:07→11:59)
[2016-04-25 08:29] VITALS: BP 134/62
[2016-04-25] MEDS: Losartan 50mg tab ORAL SCH (08:32)
[2016-04-25] MEDS: Aspirin EC 81mg tab ORAL SCH (08:33)
[2016-04-25] MEDS: Heparin 5000 units/ml inj SUBQ SCH (08:33)
[2016-04-25] MEDS: Cefepime HCl 1 GM in D5W 55 ML IV SCH (08:43)
--- NOTE | 2016-04-25 09:11 | Pulmonology Progress Note ---
Assessment/Plan Assessment/Plan ASSESSMENT traumatic laceration of R buttock s/p laceration washout and closure DM HTN diabetic neuropathy hyperlipidemia UTI/Klebsiella -colonized as per ID PLAN OF CARE MS floor CT A/P c/w cellulitis R inferior gluteal fold s/p 2/2 laceration washout and closure abx, ID follows urine cx + Klebsiella (per ID -colonized), blood cx - negative; wound cx + Klebsiella, Proteus. Strep group F-polymicrobial wound care surgery follows f/up with surgery as outpt in 2 wks for suture removal BS management wti SS of insulin BP management pain management PT/OT DVT prophylaxis continue statin, lipid panel with elevated TG, educated on low fat low cholesterol diet dc plan to SNF for wound care and abx ( as outlined by ID) follow up with surgeon in 2 weeks for suture removal case discussed and evaluated by supervising physician Subjective Allergies: Coded Allergies: No Known Allergies (Unverified , 01/23/16) Subjective wound healing well afebrile, no leukocytosis surgery follows daughter at the bedside Objective Last 24 Hour Vital Signs Date Time Temp Pulse Resp B/P Pulse Ox O2 Delivery O2 Flow Rate FiO2 04/25/16 08:32 134/62 04/25/16 08:32 83 134/62 04/25/16 08:29 97.4 83 20 134/62 95 Room Air 04/25/16 04:06 97.5 65 18 109/54 95 Room Air 04/25/16 00:00 96.4 82 19 121/64 97 Room Air 04/24/16 23:22 98.4 04/24/16 20:00 98.4 85 20 132/57 95 Room Air 04/24/16 17:51 97.9 04/24/16 16:06 97.9 75 21 128/66 97 Room Air 04/24/16 11:44 97.5 72 20 105/52 97 Room Air Intake and Output 04/24/16 04/25/16 19:00 07:00 Intake Total 1070 ml 590 ml Balance 1070 ml 590 ml Intake Oral 960 ml 590 ml IV Total 110 ml # Voids 5 3 # Bowel Movements 1 Objective General Appearance: no acute distress, awake, alert, responsive HEENT: normocephalic, atraumatic, anicteric, mucous membranes moist Respiratory/Chest: lungs clear, no respiratory distress Cardiovascular: normal peripheral pulses, normal rate, regular rhythm Abdomen: normal bowel sounds, soft, non tender Genitourinary: normal external genitalia Skin: R buttock with dressing C/.D/I Current Medications Medications (Trade) Dose Ordered Sig/Avni Route PRN Reason Start Time Stop Time Status Last Admin Dose Admin Acetaminophen 650 mg 650 mg Q4H PRN ORAL Mild Pain/Temp > 100.5 04/22/16 22:05 05/22/16 22:04 04/24/16 22:23 Al Hydroxide/Mg Hydroxide (Mylanta II) 30 ml Q6H PRN ORAL dyspepsia 04/21/16 00:30 05/21/16 00:29 Amlodipine Besylate (Norvasc) 5 mg DAILY ORAL 04/21/16 09:00 05/21/16 08:59 04/25/16 08:32 Aspirin (Ecotrin) 81 mg DAILY ORAL 04/22/16 09:00 05/22/16 08:59 04/25/16 08:33 Atorvastatin Calcium (Lipitor) 20 mg BEDTIME ORAL 04/21/16 21:00 05/21/16 20:59 04/24/16 22:19 Cefepime HCl/ Dextrose (Maxipime/D5W) 55 ml @ 110 mls/hr DAILY IV 04/23/16 09:00 04/29/16 08:59 04/25/16 08:43 Dextrose STAT PRN IV Hypoglycemia 04/21/16 17:30 05/21/16 17:29 Gabapentin (Neurontin) 800 mg THREE TIMES A DAY ORAL 04/21/16 18:00 05/21/16 17:59 04/25/16 08:33 Heparin Sodium (Porcine) (Heparin 5000 units/ml) 5,000 units EVERY 12 HOURS SUBQ 04/21/16 09:00 05/21/16 08:59 Insulin Aspart (NovoLOG) BEFORE MEALS AND HS SUBQ 04/21/16 21:00 05/21/16 20:59 04/25/16 06:07 Lorazepam (Ativan 2mg/ml 1ml) 0.5 mg Q4H PRN IV For Anxiety 04/21/16 00:30 04/28/16 00:29 Losartan Potassium (Cozaar) 100 mg DAILY ORAL 04/21/16 09:00 05/21/16 08:59 04/25/16 08:32 Metformin HCl (Glucophage) 1,000 mg BIAC ORAL 04/22/16 06:30 05/22/16 06:29 04/25/16 06:05 Morphine Sulfate (Morphine Sulfate) 1 mg EVERY 4 HOURS PRN IVP For Pain 04/21/16 00:30 04/28/16 00:29 04/21/16 16:31 Ondansetron HCl (Zofran) 4 mg Q6H PRN IVP Nausea & Vomiting 04/21/16 00:30 05/21/16 00:29 04/21/16 03:52 Polyethylene Glycol (Miralax) 17 gm HSPRN PRN ORAL Constipation 04/21/16 00:30 05/21/16 00:29 Vancomycin HCl (Vanco rx to dose) 1 ea DAILY PRN MISC Per rx protocol 04/21/16 00:30 05/21/16 00:29 Vancomycin HCl/ Dextrose (Vancomycin/D5W) 275 ml @ 183.708 mls/hr Q24H IVPB 04/23/16 22:00 04/28/16 21:59 04/24/16 22:20 Zolpidem Tartrate (Ambien) 5 mg HSPRN PRN ORAL Insomnia 04/21/16 00:30 05/21/16 00:29 Codi Holt NP (Vanchtein) Apr 25, 2016 09:11
[2016-04-25] MEDS ORDERED: AUGMENTIN 875-1 EAC1 ORAL (09:14)
--- NOTE | 2016-04-25 10:19 | Infectious Diseases Prog Note ---
Assessment/Plan Assessment/Plan ASSESSMENT: 75-year-old female with: Infectted right buttock ulcer - WCx K.pneumoniae, P.mirabilis, GFS - SP washout and closure 2/2 K.pneumoniae UTI Afebrile without leukocytosis DM NKDA Full Code PLAN: Continue IV vancomycin and cefepime d# 5 / 7 , upon DC will change to PO Augmentin x 3 d ( Rx in chart ) Monitor CBC, temperatures monitor BMP. wound care Subjective Allergies: Coded Allergies: No Known Allergies (Unverified , 01/23/16) Subjective remains afebrile SP washout, closure Objective Vital Signs Last 24 Hour Vital Signs Date Time Temp Pulse Resp B/P Pulse Ox O2 Delivery O2 Flow Rate FiO2 04/25/16 09:32 97.4 04/25/16 08:32 134/62 04/25/16 08:32 83 134/62 04/25/16 08:29 97.4 83 20 134/62 95 Room Air 04/25/16 04:06 97.5 65 18 109/54 95 Room Air 04/25/16 00:00 96.4 82 19 121/64 97 Room Air 04/24/16 23:22 98.4 04/24/16 20:00 98.4 85 20 132/57 95 Room Air 04/24/16 16:06 97.9 75 21 128/66 97 Room Air 04/24/16 11:44 97.5 72 20 105/52 97 Room Air Height (Feet): 5 Height (Inches): 2.00 Weight (Pounds): 110 General Appearance: no acute distress Respiratory/Chest: no respiratory distress Cardiovascular: normal rate, regular rhythm Abdomen: normal bowel sounds, soft, non tender, non distended Current Medications Medications (Trade) Dose Ordered Sig/Avni Route PRN Reason Start Time Stop Time Status Last Admin Dose Admin Acetaminophen 650 mg 650 mg Q4H PRN ORAL Mild Pain/Temp > 100.5 04/22/16 22:05 05/22/16 22:04 04/24/16 22:23 Al Hydroxide/Mg Hydroxide (Mylanta II) 30 ml Q6H PRN ORAL dyspepsia 04/21/16 00:30 05/21/16 00:29 Amlodipine Besylate (Norvasc) 5 mg DAILY ORAL 04/21/16 09:00 05/21/16 08:59 04/25/16 08:32 Aspirin (Ecotrin) 81 mg DAILY ORAL 04/22/16 09:00 05/22/16 08:59 04/25/16 08:33 Atorvastatin Calcium (Lipitor) 20 mg BEDTIME ORAL 04/21/16 21:00 05/21/16 20:59 04/24/16 22:19 Cefepime HCl/ Dextrose (Maxipime/D5W) 55 ml @ 110 mls/hr DAILY IV 04/23/16 09:00 04/29/16 08:59 04/25/16 08:43 Dextrose STAT PRN IV Hypoglycemia 04/21/16 17:30 05/21/16 17:29 Gabapentin (Neurontin) 800 mg THREE TIMES A DAY ORAL 04/21/16 18:00 05/21/16 17:59 04/25/16 08:33 Heparin Sodium (Porcine) (Heparin 5000 units/ml) 5,000 units EVERY 12 HOURS SUBQ 04/21/16 09:00 05/21/16 08:59 Insulin Aspart (NovoLOG) BEFORE MEALS AND HS SUBQ 04/21/16 21:00 05/21/16 20:59 04/25/16 06:07 Lorazepam (Ativan 2mg/ml 1ml) 0.5 mg Q4H PRN IV For Anxiety 04/21/16 00:30 04/28/16 00:29 Losartan Potassium (Cozaar) 100 mg DAILY ORAL 04/21/16 09:00 05/21/16 08:59 04/25/16 08:32 Metformin HCl (Glucophage) 1,000 mg BIAC ORAL 04/22/16 06:30 05/22/16 06:29 04/25/16 06:05 Morphine Sulfate (Morphine Sulfate) 1 mg EVERY 4 HOURS PRN IVP For Pain 04/21/16 00:30 04/28/16 00:29 04/21/16 16:31 Ondansetron HCl (Zofran) 4 mg Q6H PRN IVP Nausea & Vomiting 04/21/16 00:30 05/21/16 00:29 04/21/16 03:52 Polyethylene Glycol (Miralax) 17 gm HSPRN PRN ORAL Constipation 04/21/16 00:30 05/21/16 00:29 Vancomycin HCl (Vanco rx to dose) 1 ea DAILY PRN MISC Per rx protocol 04/21/16 00:30 05/21/16 00:29 Vancomycin HCl/ Dextrose (Vancomycin/D5W) 275 ml @ 183.708 mls/hr Q24H IVPB 04/23/16 22:00 04/28/16 21:59 04/24/16 22:20 Zolpidem Tartrate (Ambien) 5 mg HSPRN PRN ORAL Insomnia 04/21/16 00:30 05/21/16 00:29 MANUELA BECK Apr 25, 2016 10:19
--- NOTE | 2016-04-25 12:03 | General Progress Note ---
Progress Note Progress Note Wound very clean, sutures in place DANIEL SOLOMON Apr 25, 2016 12:03
[2016-04-25 12:17] VITALS: BP 130/64
[2016-04-25] MEDS ORDERED: NS 275ml ONE (14:29)
--- NOTE | 2016-04-27 08:10 | Discharge Summary ---
Discharge Summary Hospital Course Date of Admission Apr 20, 2016 at 23:15 Date of Discharge Apr 25, 2016 at 14:30 Admitting Diagnosis right buttock infected ulcer HPI Edna Macias is a 75 year old female who was admitted on Apr 20, 2016 at 23:15 for Right Buttock Infected Ulcer Hospital Course dc summary dictated #[id number] Discharge Medications New Medications: Amoxicillin/Potassium Clav 875-125* (Augmentin 875-125 Tablet*) 1 Each Tablet 1 TAB ORAL TWICE A DAY, #6 TAB Continued Medications: Amlodipine Besylate* (Amlodipine Besylate*) 5 Mg Tablet 5 MG ORAL DAILY, TAB Aspirin* (Aspir 81*) 81 Mg Tablet.dr 81 MG ORAL DAILY, TAB Atorvastatin Calcium* (Atorvastatin Calcium*) 20 Mg Tablet 20 MG ORAL BEDTIME, TAB Gabapentin* (Gabapentin*) 800 Mg Tablet 800 MG ORAL THREE TIMES A DAY, TAB Losartan Potassium* (Losartan Potassium*) 50 Mg Tablet 100 MG ORAL DAILY, TAB Metformin Hcl* (Metformin Hcl*) 1,000 Mg Tablet 1000 MG ORAL TWICE A DAY, TAB Discharge Condition Upon Discharge: stable Discharge Disposition Patient was discharged to [facility] Discharge Diagnoses: Jonathon (Vancein)Codi NP Apr 27, 2016 08:10
--- NOTE | 2016-04-27 21:58 | Discharge Summary 2 SIG ---
DATE OF ADMISSION: 04/20/2016 DATE OF DISCHARGE: 04/25/2016 REASON FOR ADMISSION: 75-year-old female came to the emergency room after having increased right buttock pain and swelling. The patient has a history of diabetes. The patient reported gradually, progressively enlarging buttock wound after she sustained a fall in her bathroom. She denied chest pain, SOB, dizziness, loss of consciousness, blackout before fall. The patient also reported increasing pain in the area. In the emergency room, evaluation revealed cellulitis and diabetes ulcer of the buttocks. The patient was admitted for further management. ADMITTING DIAGNOSES: 1. Diabetic ulcer of buttocks. 2. Diabetes mellitus. 3. Cellulitis. 4. Possible sepsis. 5. Urinary tract infection. HOSPITAL STAY: On admission, the patient had no leukocytosis. She was afebrile. Lactic acid was elevated at 2.5. The patient was admitted to Med/Surg floor. CT of the abdomen and pelvis, which was done in the emergency room revealed possible soft tissue changes to the right of the inferior gluteal fold likely indicating cellulitis. ID consult was requested and followed up the patient closely. The patient was started on empiric antibiotics. General surgery consult was requested. General surgeon recommended to clean the wound with incision and drainage, washout and closure with reapproximation. The patient subsequently undergone on 04/23/2016, right buttock laceration washout and closure. Course of recovery was uneventful. The patient was on IV antibiotics. Surgeon and ID closely followed. The patient was on IV antibiotics per ID recommendation. Okay to discharge on oral antibiotics. Surgeon cleared for discharge. Wound clean. Edges approximated. Follow up with the surgeon in two weeks for sutures removal. The patient's urine culture was positive for Klebsiella, however, per ID it was colonized. Wound care was provided. Pain management was maintained. Blood sugar was managed with sliding scale of insulin. Hemoglobin A1c is 9.4 not at goal. The patient needs further optimization of anti-glycemic regimen while outpatient. The patient was working with physical and occupational therapists. DVT prophylaxis was provided. Lipid panel with elevated triglycerides. The patient was on statin. Educated on low-fat, low-cholesterol diet.Blood pressure was manage with calcium channel ab and ARB, stable with current regimen. DISCHARGE DIAGNOSES: 1. Traumatic laceration of the right buttock. 2. Status post laceration washout and closure. 3. Right buttock cellulitis. 4. Diabetes mellitus. 5. Diabetic neuropathy. 6. Hyperlipidemia. 7. Hypertension. DISCHARGE MEDICATIONS: See medication reconciliation list. The patient will need Augmentin for additional three days. DISCHARGE INSTRUCTIONS: The patient was discharged to senior care facility for wound care and rehabilitation. The patient to follow up with the surgeon for sutures removal in two weeks. Velma Bertrand M.D. I have been assigned to dictate discharge summary on this account and I was not involved in the patient's management. Codi ArevaloHelen Hayes HospitalMeek N.PRenita DR: LISA JOB#: [id number] CC: [facility]
== END 2016-04-25 14:30 | DRG 638 ==
LOC: EDBD 21:45 → EMR 22:47 → 4W 23:15 → EDBEDREQ 04-21 01:34 → 4W 04-21 03:44
PROC: 0HQ8XZZ Repair Buttock Skin, External Approach (ICD-10-PCS; principal; 2016-04-23)
DX: E11.622 Type 2 diabetes mellitus with other skin ulcer (principal); L03.317 Cellulitis of buttock; L98.419 Non-pressure chronic ulcer of buttock with unspecified severity; E11.40 Type 2 diabetes mellitus with diabetic neuropathy, unspecified; N39.0 Urinary tract infection, site not specified; I10 Essential (primary) hypertension; S31.811A Laceration without foreign body of right buttock, initial encounter; W22.8XXA Striking against or struck by other objects, initial encounter; Y92.002 Bathroom of unspecified non-institutional (private) residence as the place of occurrence of the external cause; E78.5 Hyperlipidemia, unspecified; Z22.39 Carrier of other specified bacterial diseases
CPT/HCPCS: 36415; 71010; 74177; 80053; 80061; 80202; 81003; 82550; 82553; 82962; 83036; 83605; 84443; 84484; 85025; 87040; 87070; 87086; 87181; 87205; 93005; J1815; J2405

== ENCOUNTER 2017-05-22 10:08 | Emergency (ER) | payer MEDICAID, MEDICARE ==
[~2017-05-22] VITALS: Ht 165.1 cm; Wt 72.6 kg
[~2017-05-22 10:08] MED LIST changes: +AUGMENTIN 875-1 EAC1 ORAL
[2017-05-22 10:10] VITALS: BP 135/56
[2017-05-22 10:41] LABS: BASOPHILS % (AUTO) 0.9 % (0.0-2.0); EOSINOPHILS % (AUTO) 2.8 % (0.0-3.0); HEMATOCRIT 34.6 % (37.0-47.0); HEMOGLOBIN 11.6 G/DL (12.0-16.0); LYMPHOCYTES % (AUTO) 36.3 % (20.0-45.0); MEAN CORPUSCULAR VOLUME 90 FL (80-99); MONOCYTES % (AUTO) 4.5 % (1.0-10.0); NEUTROPHILS % (AUTO) 55.5 % (45.0-75.0); PLATELET COUNT 198 K/UL (150-450); RED BLOOD COUNT 3.84 M/UL (4.20-5.40); RED CELL DISTRIBUTION WIDTH 11.2 % (11.6-14.8); WHITE BLOOD COUNT 6.1 K/UL (4.8-10.8)
[2017-05-22 10:49] LABS: ANION GAP 7 mmol/L (5-15); BLOOD UREA NITROGEN 16 mg/dL (7-18); CALCIUM 8.9 MG/DL (8.5-10.1); CARBON DIOXIDE 30 MMOL/L (21-32); CHLORIDE 107 MMOL/L (98-107); CREATININE 0.9 MG/DL (0.55-1.30); POTASSIUM 3.1 MMOL/L (3.5-5.1); SODIUM 144 MMOL/L (136-145)
[2017-05-22 11:05] LABS: ALANINE AMINOTRANSFERASE 39 U/L (12-78); ALBUMIN 3.3 G/DL (3.4-5.0); ALBUMIN/GLOBULIN RATIO 0.9 (1.0-2.7); ALKALINE PHOSPHATASE 107 U/L (46-116); ASPARTATE AMINO TRANSFERASE 27 U/L (15-37); BILIRUBIN,TOTAL 0.2 MG/DL (0.2-1.0)
--- NOTE | 2017-05-22 11:15 | Diagnostic Imaging Report ---
Indication: Chest pain Comparison: April 22, 2016 A single view chest radiograph was obtained. Findings: Bones are osteopenic. The heart is enlarged. Lungs are clear. Aorta is mildly ectatic. IMPRESSION: No acute disease
--- NOTE | 2017-05-22 11:23 | Emergency Room Report ---
History of Present Illness General Chief Complaint: Dizziness Source: Patient, EMS Present Illness HPI 76-year-old female, seated hypertension diabetes, presenting with dizziness. Patient states that she woke up this morning, gave herself 50 units of Lantus, after that she felt very dizzy. Per EMS her glucose was 50. However coming to the emergency room it was over 100. Patient denies any headache any loss of consciousness or fall. No chest pain or shortness of breath. She does states that she feels lightheaded and dizzy. No leg or arm weakness she has otherwise been eating and drinking normally. No fever no chills no sulfonylurea use Allergies: Coded Allergies: No Known Allergies (Unverified , 01/23/16) Patient History Past Medical History: see triage record Past Surgical History: none Pertinent Family History: none Now: No Reviewed Nursing Documentation: PMH: Agreed, PSxH: Agreed Nursing Documentation-PMH Past Medical History: No History, Except For Hx Cardiac Problems: Yes Hx Hypertension: Yes Hx Diabetes: Yes Hx Cancer: No Hx Gastrointestinal Problems: No Hx Neurological Problems: Yes Hx Peripheral Neuropathy: Yes - diabetic neuropathy on feet Review of Systems All Other Systems: negative except mentioned in HPI Physical Exam Vital Signs Date Time Temp Pulse Resp B/P (MAP) Pulse Ox O2 Delivery O2 Flow Rate FiO2 05/22/17 10:10 97.8 75 13 135/56 100 Room Air 97.8 Sp02 EP Interpretation: reviewed, normal General Appearance: alert, GCS 15, non-toxic, mild distress Head: normocephalic, atraumatic Eyes: bilateral eye normal inspection, bilateral eye PERRL, bilateral eye EOMI ENT: normal ENT inspection, normal pharynx, normal voice, moist mucus membranes Neck: normal inspection, full range of motion, supple Respiratory: normal inspection, lungs clear, normal breath sounds, no respiratory distress, no retraction, no wheezing, speaking full sentences, chest symmetrical Cardiovascular #1: normal inspection, regular rate, rhythm, no edema, normal capillary refill Cardiovascular #2: 2+ radial (R), 2+ radial (L) Gastrointestinal: normal inspection, non tender, soft, non-distended, no guarding Musculoskeletal: normal inspection, back normal, normal range of motion, non- tender Neurologic: normal inspection, alert, oriented x3, responsive, motor strength/ tone normal, sensory intact, normal gait, speech normal Psychiatric: normal inspection, judgement/insight normal, memory normal Skin: normal inspection, normal color, no rash, warm/dry, well hydrated, normal turgor Medical Decision Making Diagnostic Impression: Primary Impression: Dizziness Additional Impression: Hypoglycemia ER Course 76-year-old female with lightheadedness/dizziness DDX: Vasovagal vs. orthostatic / hypovolemic/dehydration vs. cardiac arrhythmia (SVT , Afib) vs. cardiac (, ACS) vs. PE vs. metabolic (hypoglycemia, hypoxia), vs neuro (seizure, CVA, intracranial bleed) Plan: bgm, cbc, bmp, ekg, cxr Glucose checks, D50 when necessary CT head will be held, no neurological signs or symptoms at this time ER course: On chemistry glucose is 58, patient was given a full meal to eat. Repeat glucose was 200 Patient states improvement of symptoms, and has been able to ambulate without difficulty. now asymptomatic patient ate a full meal, tolerating PO, with daughter, has been stable Daughter is at bedside, states that patient gave herself the Lantus, and waited too long to eat food afterwards glucose checks have now been normal. Disposition: DC home with PMD fu instructed to change dose of lantus or make sure to eat immediately after Please note that this Emergency Department Report was dictated using [employer] managing [employer] technology software, occasionally this can lead to erroneous entry secondary to interpretation by the dictation equipment. EKG Diagnostic Results EP Interpretation: Yes Rate: normal Rhythm: NSR ST Segments: No acute changes ASA given to patient: No Rhythm Strip EP Interpretation: Yes Rate: 70 Rhythm: NSR, no PVCs, no ectopy Chest X-ray CXR: Ordered: Yes 1 view Indication: Dizziness EP interpretation: Yes Interpretation: No consolidation, no effusion, no PTX, no acute cardiopulmonary disease Impression: No acute disease Electronically signed by Regina Gonzalez MD Laboratory Tests Test 05/22/17 10:12 White Blood Count 6.1 K/UL (4.8-10.8) Red Blood Count 3.84 M/UL (4.20-5.40) L Hemoglobin 11.6 G/DL (12.0-16.0) L Hematocrit 34.6 % (37.0-47.0) L Mean Corpuscular Volume 90 FL (80-99) Mean Corpuscular Hemoglobin 30.2 PG (27.0-31.0) Mean Corpuscular Hemoglobin Concent 33.5 G/DL (32.0-36.0) Red Cell Distribution Width 11.2 % (11.6-14.8) L Platelet Count 198 K/UL (150-450) Mean Platelet Volume 6.9 FL (6.5-10.1) Neutrophils (%) (Auto) 55.5 % (45.0-75.0) Lymphocytes (%) (Auto) 36.3 % (20.0-45.0) Monocytes (%) (Auto) 4.5 % (1.0-10.0) Eosinophils (%) (Auto) 2.8 % (0.0-3.0) Basophils (%) (Auto) 0.9 % (0.0-2.0) Sodium Level 144 MMOL/L (136-145) Potassium Level 3.1 MMOL/L (3.5-5.1) L Chloride Level 107 MMOL/L (98-107) Carbon Dioxide Level 30 MMOL/L (21-32) Anion Gap 7 mmol/L (5-15) Blood Urea Nitrogen 16 mg/dL (7-18) Creatinine 0.9 MG/DL (0.55-1.30) Estimate Glomerular Filtration Rate mL/min (>60) Glucose Level 58 MG/DL (74-106) L Calcium Level 8.9 MG/DL (8.5-10.1) Total Bilirubin 0.2 MG/DL (0.2-1.0) Aspartate Amino Transferase (AST) 27 U/L (15-37) Alanine Aminotransferase (ALT) 39 U/L (12-78) Alkaline Phosphatase 107 U/L (46-116) Troponin I 0.032 ng/mL (0.000-0.056) Pro-B-Type Natriuretic Peptide 28 pg/mL (0-125) Total Protein 7.0 G/DL (6.4-8.2) Albumin 3.3 G/DL (3.4-5.0) L Globulin 3.7 g/dL Albumin/Globulin Ratio 0.9 (1.0-2.7) L Last Vital Signs Date Time Temp Pulse Resp B/P (MAP) Pulse Ox O2 Delivery O2 Flow Rate FiO2 05/22/17 10:10 98.1 73 18 120/96 95 Room Air 98.1 Disposition: HOME, SELF-CARE Condition: Improved Patient Instructions: Regina Leyva M.D. May 22, 2017 11:22
[2017-05-22 12:10] VITALS: BP 126/58
[2017-05-22 12:44] LABS: APPEARANCE,URINE CLOUDY; BILIRUBIN, URINE NEGATIVE (NEGATIVE); GLUCOSE, URINE (UA) 2+ (NEGATIVE); KETONES,URINE NEGATIVE (NEGATIVE); LEUKOCYTE ESTERASE ,URINE 1+ (NEGATIVE); NITRITE,URINE POSITIVE (NEGATIVE); PH,URINE 6.5 (4.5-8.0); PROTEIN,URINE 1+ (NEGATIVE); UROBILINOGEN,URINE NORMAL MG/DL (0.0-1.0)
[2017-05-22 12:53] LABS: COLOR,URINE YELLOW
[2017-05-22] MEDS ORDERED: KEFLEX500 MG ORAL (12:56)
[2017-05-22 13:17] VITALS: BP 126/58
--- NOTE | 2017-06-02 16:43 | Cardiology Report ---
APPROVED REPORT EKG Measurement Heart [id number] Normal sinus rhythm Nonspecific T wave abnormality Abnormal ECG
== END 2017-05-22 13:30 | disposition home or self-care (01) ==
LOC: EDBD 10:08 → EMR 10:15
DX: R42 Dizziness and giddiness (principal); E11.649 Type 2 diabetes mellitus with hypoglycemia without coma; I10 Essential (primary) hypertension; E11.40 Type 2 diabetes mellitus with diabetic neuropathy, unspecified; Z79.4 Long term (current) use of insulin
CPT/HCPCS: 36415; 71045; 80053; 81003; 82962; 83880; 84484; 85025; 87086; 87181; 93005; 96374; 99284